=== PATIENT | female | born 1965 | race Caucasian/White ===

== ENCOUNTER 2017-01-25 23:49 | Emergency (ER) | payer OTHER | END 2017-01-26 01:00 | disposition left against medical advice (07) | LOC: ER 23:49 | DX: Z53.21 Procedure and treatment not carried out due to patient leaving prior to being seen by health care provider (principal) ==

== ENCOUNTER 2017-10-25 09:35 | Emergency (ER) | payer SELFPAY ==
--- NOTE | 2017-10-25 10:06 | ER Document Report ---
ED Medical Screen (RME) - General Chief Complaint: Chest Pain > 30 Stated Complaint: CHEST/BACK PAIN Time Seen by Provider: 10/25/17 09:56 Notes: 52-year-old female patient with 4 day history of sternal and epigastric pain radiating into the back getting progressively worse. Brief exam found sternal tenderness, epigastric tenderness, and severe right upper quadrant abdominal palpation tenderness which was a surprise to the patient. Lungs are clear. I have greeted and performed a rapid initial assessment of this patient. A comprehensive ED assessment and evaluation of the patient, analysis of test results and completion of the medical decision making process will be conducted by additional ED providers. TRAVEL OUTSIDE OF THE [place] IN LAST 30 DAYS: No - Related Data Allergies/Adverse Reactions: codeine [Codeine] Allergy (Verified 10/25/17 09:38) Sulfa (Sulfonamide Antibiotics) Allergy (Verified 10/25/17 09:38) tetracycline [Tetracycline] Allergy (Verified 10/25/17 09:38) Past Medical History - Past Medical History Cardiac Medical History: Reports: Hx Hypertension Renal/ Medical History: Reports: Hx Kidney Stones Psychiatric Medical History: Reports: Hx Attention Deficit Hyperactivity Disorder Past Surgical History: Reports: Hx Appendectomy, Hx Kidney (Renal Surgery) - Immunizations Immunizations up to date: Yes Hx Diphtheria, Pertussis, Tetanus Vaccination: Yes Physical Exam - Vital signs Vitals: Temp Pulse Resp BP Pulse Ox 98.1 F 114 H 18 169/93 H 97 10/25/17 09:39 10/25/17 09:39 10/25/17 09:39 10/25/17 09:39 10/25/17 09:39 Course - Vital Signs Vital signs: Temp Pulse Resp BP Pulse Ox 98.1 F 114 H 18 169/93 H 97 10/25/17 09:39 10/25/17 09:39 10/25/17 09:39 10/25/17 09:39 10/25/17 09:39
--- NOTE | 2017-10-25 10:43 | EKG REPORT ---
SEVERITY:- ABNORMAL ECG - SINUS TACHYCARDIA PROBABLE LEFT ATRIAL ABNORMALITY CONSIDER ANTEROSEPTAL INFARCT BORDERLINE T WAVE ABNORMALITIES : Confirmed by: Nic Mojica 25-Oct-2017 10:42:46
[2017-10-25 10:54] LABS: ABSOLUTE BASOPHILS # (AUTO) 0.1 10^3/uL (0.0-0.2); ABSOLUTE EOSINOPHILS # (AUTO) 0.1 10^3/uL (0.0-0.6); ABSOLUTE LYMPHOCYTES (AUTO) 2.4 10^3/uL (0.5-4.7); ABSOLUTE MONOCYTES (AUTO) 0.4 10^3/uL (0.1-1.4); ABSOLUTE NEUT (AUTO) 4.4 10^3/uL (1.7-8.2); BASOPHILS % (AUTO) 0.8 % (0-2); EOSINOPHILS % (AUTO) 1.5 % (0-6); HEMATOCRIT 38.7 % (36.0-47.0); HEMOGLOBIN 13.2 g/dL (12.0-15.5); LYMPHOCYTES % (AUTO) 32.5 % (13-45); MEAN CORPUSCULAR HEMOGLOBIN 29.4 pg (27.0-33.4); MEAN CORPUSCULAR VOLUME 86 fl (80-97); MONOCYTES % (AUTO) 5.8 % (3-13); PLATELET COUNT 350 10^3/uL (150-450); RED BLOOD COUNT 4.48 10^6/uL (3.72-5.28); RED CELL DISTRIBUTION WIDTH 16.5 % (11.5-14.0); SEGMENTED NEUTROPHILS % (AUTO) 59.4 % (42-78); TOTAL CELLS COUNTED % (AUTO) 100 %; WHITE BLOOD COUNT 7.5 10^3/uL (4.0-10.5)
--- NOTE | 2017-10-25 10:56 | RADIOLOGY REPORT (SQ) ---
EXAM DESCRIPTION: ACUTE ABDOMEN SERIES COMPLETED DATE/TIME: 10/25/2017 10:41 am REASON FOR STUDY: Chest pain, abdominal pain COMPARISON: CT stone survey 05/02/2015 KUB 05/02/2015 NUMBER OF VIEWS: Three views. TECHNIQUE: Frontal chest, supine abdomen and upright abdomen radiographic images acquired. LIMITATIONS: None. FINDINGS: CHEST: Lungs clear of infiltrates. Cardiac silhouette size, verito, bony structures unremar kable. FREE AIR: None. No abnormal gas collections. BOWEL GAS PATTERN: Nonobstructive pattern. No dilated loops or air fluid levels. CALCIFICATIONS: There are multiple bilateral intrarenal nonobstructive kidney stones, 5 mm or less in size. These are partially obscured by stool in the transverse colon. No definite stones over the expected course of the right or left ureter. There are calcified pelvic phleboliths present. HARDWARE: None in the abdomen. SOFT TISSUES: No gross mass or suggestion of organomegaly. BONES: Degenerative disc changes at L4-5 and L5-S1 OTHER: No other significant finding. IMPRESSION: Bilateral intrarenal nonobstructive kidney stones. TECHNICAL DOCUMENTATION: JOB ID: [id number] [employer]- All Rights Reserved Reading location - IP/workstation name: [email or web address]
[2017-10-25 11:11] LABS: ALANINE AMINOTRANSFERASE 37 U/L (9-52); ALBUMIN 4.7 g/dL (3.5-5.0); ALKALINE PHOSPHATASE 81 U/L (38-126); ANION GAP 14 (5-19); ASPARTATE AMINO TRANSFERASE 24 U/L (14-36); BILIRUBIN,DIRECT 0.2 mg/dL (0.0-0.4); BILIRUBIN,TOTAL 0.3 mg/dL (0.2-1.3); BLOOD UREA NITROGEN 19 mg/dL (7-20); CALCIUM 10.3 mg/dL (8.4-10.2); CARBON DIOXIDE 27 mmol/L (22-30); CHLORIDE 102 mmol/L (98-107); CREATINE KINASE 239 U/L (30-135); GLUCOSE 129 mg/dL (75-110); LIPASE 246.1 U/L (23-300); POTASSIUM 4.4 mmol/L (3.6-5.0); SODIUM 142.6 mmol/L (137-145); TOTAL PROTEIN 7.6 g/dL (6.3-8.2)
[2017-10-25 11:42] LABS: CREATINE KINASE MB 1.46 ng/mL (<4.55)
[2017-10-25 11:44] LABS: TROPONIN I < 0.012 ng/mL
--- NOTE | 2017-10-25 12:24 | RADIOLOGY REPORT (SQ) ---
EXAM DESCRIPTION: U/S ABDOMEN LIMITED W/O DOP COMPLETED DATE/TIME: 10/25/2017 12:08 pm REASON FOR STUDY: Chest pain, epigastric pain, RUQ pain COMPARISON: Abdominal films 10/25/2017, CT abdomen pelvis 05/02/2015, 02/09/2015 KUB 05/02/2015 TECHNIQUE: Dynamic and static grayscale images acquired of the abdomen and recorded on PACS. Additio nal selected color Doppler and spectral images recorded. LIMITATIONS: Midline bowel gas FINDINGS: PANCREAS: Midline pancreas unremarkable LIVER: Normal size liver difficult to penetrate with the ultrasound energy from diffuse fatty infiltr ation. No gross intrahepatic biliary ductal dilatation. LIVER VASCULATURE: Normal directional flow of the main portal vein and hepatic veins. GALLBLADDER: No stones. Normal wall thickness. No pericholecystic fluid. ULTRASOUND-DETECTED MOYER'S SIGN: Negative. INTRAHEPATIC DUCTS AND COMMON DUCT: CBD and intrahepatic ducts normal caliber. No filling defects. INFERIOR VENA CAVA: Normal flow. AORTA: No aneurysm. RIGHT KIDNEY: 11 cm in length with small intrarenal nonobstructive shadowing stones. No right hydro nephrosis. PERITONEAL AND RIGHT PLEURAL SPACE: No ascites or effusions. OTHER: No other significant findings. IMPRESSION: Fatty liver No gallstones Right-sided intrarenal kidney stones without hydronephrosis TECHNICAL DOCUMENTATION: JOB ID: [id number]- All Rights Reserved Reading location - IP/workstation name: [email or web address]
[2017-10-25] MEDS ORDERED: MAG HYDROX/AL HYDROX/SIMETH SUSP 30 ML UDCUP PO ONE (13:03)
[2017-10-25] MEDS ORDERED: METOCLOPRAMIDE HCL ORAL SOLN 10 MG/10 ML UDCUP PO ONE (13:03)
[2017-10-25] MEDS ORDERED: NORMAL SALINE 250 ML IV ONE (13:03)
[2017-10-25] MEDS ORDERED: LIDOCAINE 2% VISCOUS SOLN 20 ML UDCUP PO ONE (13:03)
--- NOTE | 2017-10-25 14:28 | RADIOLOGY REPORT (SQ) ---
EXAM DESCRIPTION: CTA CHEST COMPLETED DATE/TIME: 10/25/2017 1:55 pm REASON FOR STUDY: tachy cp sob COMPARISON: Three-way abdomen series 10/25/2017 TECHNIQUE: CT scan of the chest performed using helical scanning technique with dynamic intravenous contrast injection. Images reviewed with lung, soft tissue and bone windows. Reconstructed coronal and sagittal MPR images reviewed. Additional 3 dimensional post-processing performed to develop Maximal Intensity Projection images (ND P). All images stored on PACS. All CT scanners at this facility use dose modulation, iterative reconstruction, and/or weight based d osing when appropriate to reduce radiation dose to as low as reasonably achievable (ALARA). [facility]: Dose Right [facility]: CareDose [facility]: Dose Right [facility]: Teradose 4D [facility]: Judys Book CONTRAST TYPE AND DOSE: contrast/concentration: Isovue 370.00 mg/ml; Total Contrast Delivered: 77.0 ml; Total Saline Delivered: 75.0 ml Limited contrast bolus optimized for the pulmonary arteries. Not diagnostic for the aorta. RENAL FUNCTION: Creatinine 0.63 RADIATION DOSE: CT Rad equipment meets quality standard of care and radiation dose reduction techniq ues were employed. CTDIvol: 16.5 - 17.5 mGy. DLP: 614 mGy-cm. . LIMITATIONS: Limited contrast bolus for the pulmonary arteries FINDINGS: LUNGS AND PLEURA: No masses, infiltrates, pneumothorax. No pleural effusions, calcificati ons. AORTA AND GREAT VESSELS: No aneurysm. Contrast bolus not optimized for the aorta. HEART: No pericardial effusion. No significant coronary artery calcifications. PULMONARY ARTERIES: No emboli visualized in the main pulmonary arteries or the segmental branches. HILAR AND MEDIASTINAL STRUCTURES: No identified masses or abnormal nodes. HARDWARE: None in the chest. UPPER ABDOMEN: Left upper pole intrarenal nonobstructive stones. Fatty liver. THYROID AND OTHER SOFT TISSUES: No masses. No adenopathy. BONES: No acute or significant finding. 3D MIPS: Confirm above findings. OTHER: No other significant finding. IMPRESSION: No acute findings COMMENT: Quality ID # [id number]: Final reports with documentation of one or more dose reduction techniques (e.g., Automated exposure control, adjustment of the mA and/or kV according to patient size, use of iterative reconstruction technique) TECHNICAL DOCUMENTATION: JOB ID: [id number] [employer]- All Rights Reserved Reading location - IP/workstation name: [email or web address]
--- NOTE | 2017-10-25 15:01 | ER Document Report ---
ED General - General Chief Complaint: Chest Pain > 30 Stated Complaint: CHEST/BACK PAIN Time Seen by Provider: 10/25/17 09:56 TRAVEL OUTSIDE OF THE [place] IN LAST 30 DAYS: No - HPI Patient complains to provider of: Chest pain back pain abdominal pain shortness of breath Notes: Patient coming in for evaluation of right upper quadrant abdominal pain along with shortness of breath. Patient states ongoing for the last few weeks chest pain started last night. Patient states dyspnea with ambulation. Upon the patient be RME the patient had right upper quadrant tenderness and ultrasound was performed. Patient denies any fevers chills nausea vomiting diarrhea. Patient denies any association of pain with food. Patient is currently upon my evaluation denies any recent trauma denies any recent travel. - Related Data Allergies/Adverse Reactions: codeine [Codeine] Allergy (Verified 10/25/17 09:38) Sulfa (Sulfonamide Antibiotics) Allergy (Verified 10/25/17 09:38) tetracycline [Tetracycline] Allergy (Verified 10/25/17 09:38) Past Medical History - Social History Smoking Status: Current Every Day Smoker Family History: Reviewed & Not Pertinent Patient has suicidal ideation: No Patient has homicidal ideation: No - Past Medical History Cardiac Medical History: Reports: Hx Hypertension Renal/ Medical History: Reports: Hx Kidney Stones. Denies: Hx Peritoneal Dialysis Psychiatric Medical History: Reports: Hx Attention Deficit Hyperactivity Disorder Past Surgical History: Reports: Hx Appendectomy, Hx Kidney (Renal Surgery) - Immunizations Immunizations up to date: Yes Hx Diphtheria, Pertussis, Tetanus Vaccination: Yes Hx Pneumococcal Vaccination: 07/25/00 Review of Systems - Review of Systems Constitutional: No symptoms reported EENT: No symptoms reported Cardiovascular: Chest pain Respiratory: Short of breath Gastrointestinal: No symptoms reported, Abdominal pain Genitourinary: No symptoms reported Female Genitourinary: No symptoms reported Musculoskeletal: No symptoms reported Skin: No symptoms reported Hematologic/Lymphatic: No symptoms reported Neurological/Psychological: No symptoms reported -: Yes All other systems reviewed and negative Physical Exam - Vital signs Vitals: Temp Pulse Resp BP Pulse Ox 98.1 F 114 H 18 169/93 H 97 10/25/17 09:39 10/25/17 09:39 10/25/17 09:39 10/25/17 09:39 10/25/17 09:39 Interpretation: Normal - General General appearance: Appears well, Alert - HEENT Head: Normocephalic, Atraumatic Eyes: Normal Pupils: PERRL - Respiratory Respiratory status: No respiratory distress Chest status: Nontender Breath sounds: Normal Chest palpation: Normal - Cardiovascular Rhythm: Regular Heart sounds: Normal auscultation Murmur: No - Abdominal Inspection: Normal Distension: No distension Bowel sounds: Normal Tenderness: Tender - Right upper quadrant tenderness. No: McBurney's point, Singh's sign, Guarding, Rebound Organomegaly: No organomegaly - Back Back: Normal, Nontender - Extremities General upper extremity: Normal inspection, Nontender, Normal color, Normal ROM , Normal temperature General lower extremity: Normal inspection, Nontender, Normal color, Normal ROM , Normal temperature, Normal weight bearing. No: Sam's sign - Neurological Neuro grossly intact: Yes Cognition: Normal Orientation: AAOx4 [place] Coma Scale Eye Opening: Spontaneous [place] Coma Scale Verbal: Oriented [place] Coma Scale Motor: Obeys Commands [place] Coma Scale Total: 15 Speech: Normal Motor strength normal: LUE, RUE, LLE, RLE Sensory: Normal - Psychological Associated symptoms: Normal affect, Normal mood - Skin Skin Temperature: Warm Skin Moisture: Dry Skin Color: Normal Course - Re-evaluation Re-evalutation: 10/25/17 18:25 Patient coming in for evaluation of right upper quadrant abdominal pain chest pain shortness of breath. Abdominal series was negative. Patient's laboratory findings not suggestive of acute coronary artery ischemia troponins negative. EKG did not show any changes. No signs pancreatitis. Upon reevaluation after the negative right upper quadrant ultrasound patient still complaining of chest pain radiating to her back or shortness of breath. Patient was tachycardic on arrival here therefore a CTA was performed which was also negative. No clear etiology for patient's symptoms and sent underlying GI therefore GI cocktail was given patient states minimal relief The patient has times no critical etiology seen and we can discharge her home. Patient states understanding will discharge home with Nydia Bro and Crista. Upon looking by the patient's room just prior to discharge resting comfortably on her phone texting. - Vital Signs Vital signs: Temp Pulse Resp BP Pulse Ox 97.9 F 84 20 139/82 H 97 10/25/17 15:27 10/25/17 15:27 10/25/17 15:27 10/25/17 15:27 10/25/17 15:27 - Laboratory Result Diagrams: 10/25/17 10:22 10/25/17 10:22 Laboratory results interpreted by me: 10/25/17 10/25/17 10:22 10:22 RDW 16.5 H Glucose 129 H Calcium 10.3 H Creatine Kinase 239 H Discharge - Discharge Clinical Impression: RUQ abdominal pain Chest pain Qualifiers: Chest pain type: unspecified Qualified Code(s): R07.9 - Chest pain, unspecified Dyspnea Qualifiers: Dyspnea type: unspecified Qualified Code(s): R06.00 - Dyspnea, unspecified Condition: Good Disposition: HOME, SELF-CARE Instructions: Abdominal Pain ([facility]), Chest Pain of Unclear Cause ([facility]), Dyspnea , Nonspecific ([facility]) Additional Instructions: Your workup today does not show any signs of cardiac ischemia cardiac damage acute gallbladder disease gallbladder infection gallstones pancreatitis pneumonia within your lungs. I do believe your symptoms are more stomach related is that your pain did improve with the initiation of a GI cocktail. I highly recommend she follow-up with your primary care physician. I do believe he needs further workup for possible gallbladder disease as she did have right upper quadrant abdominal pain. I do believe he also need further workup more likely by manager grant to make sure he does have underlying gastritis. Return to ER symptoms worsen take medications as prescribed. Prescriptions: Dicyclomine HCl [Bentyl 20 mg Tablet] 20 mg PO QID #40 tablet Metoclopramide HCl [Reglan] 5 mg PO Q6 #30 tablet Sucralfate [Carafate 1 gm Tablet] 1 gm PO ACHS #120 tablet Forms: Return to Work
[2017-10-25 15:28] VITALS: BP 139/82
== END 2017-10-25 15:33 | disposition home or self-care (01) ==
LOC: ER 09:35
DX: R10.11 Right upper quadrant pain (principal); R07.9 Chest pain, unspecified; R06.00 Dyspnea, unspecified; M54.9 Dorsalgia, unspecified; F17.200 Nicotine dependence, unspecified, uncomplicated
CPT/HCPCS: 93005; 99285; 36415; 82553; 82550; 83690; 85025; 80053; 84484; 74022; 76705; 71275; 93010; J3490; J7050

== ENCOUNTER 2017-12-27 11:35 | Observation (INO) | payer SELFPAY ==
[2017-12-27] MEDS ORDERED: ASPIRIN 81 MG TABLET, CHEWABLE PO ONE (11:44)
--- NOTE | 2017-12-27 11:46 | ER Document Report ---
ED Medical Screen (RME) - General Chief Complaint: Abnormal Lab Results Stated Complaint: ABNORMAL LABS Time Seen by Provider: 12/27/17 11:44 Notes: RAPID MEDICAL EVALUATION DISCLOSURE I have seen this patient as part of a Rapid Medical Evaluation and, if applicable, placed any initially appropriate orders. The patient will be seen and fully evaluated, including a full history and physical exam, by a provider ( in Main ED or Fast Track) when a room becomes available. 52-year-old female here with complaints of midsternal chest pain shortness of breath diaphoresis nausea ongoing for the past 6 weeks but worsening progressively and especially over the weekend so she called her doctor who ordered blood tests which showed an elevated troponin. She was therefore sent here for further evaluation. EXAM CTAB RRR TRAVEL OUTSIDE OF THE [place] IN LAST 30 DAYS: No - Related Data Allergies/Adverse Reactions: codeine [Codeine] Allergy (Verified 10/25/17 09:38) Sulfa (Sulfonamide Antibiotics) Allergy (Verified 10/25/17 09:38) tetracycline [Tetracycline] Allergy (Verified 10/25/17 09:38) Past Medical History - Past Medical History Cardiac Medical History: Reports: Hx Hypertension Renal/ Medical History: Reports: Hx Kidney Stones. Denies: Hx Peritoneal Dialysis Psychiatric Medical History: Reports: Hx Attention Deficit Hyperactivity Disorder Past Surgical History: Reports: Hx Appendectomy, Hx Kidney (Renal Surgery) - Immunizations Immunizations up to date: Yes Hx Diphtheria, Pertussis, Tetanus Vaccination: Yes
[2017-12-27 12:17] LABS: ABSOLUTE BASOPHILS # (AUTO) 0.1 10^3/uL (0.0-0.2); ABSOLUTE EOSINOPHILS # (AUTO) 0.1 10^3/uL (0.0-0.6); ABSOLUTE LYMPHOCYTES (AUTO) 2.8 10^3/uL (0.5-4.7); ABSOLUTE MONOCYTES (AUTO) 0.4 10^3/uL (0.1-1.4); ABSOLUTE NEUT (AUTO) 4.1 10^3/uL (1.7-8.2); BASOPHILS % (AUTO) 0.8 % (0-2); HEMATOCRIT 40.9 % (36.0-47.0); HEMOGLOBIN 13.9 g/dL (12.0-15.5); LYMPHOCYTES % (AUTO) 37.6 % (13-45); MEAN CORPUSCULAR HEMOGLOBIN 29.7 pg (27.0-33.4); MEAN CORPUSCULAR HGB CONC 33.9 g/dL (32.0-36.0); MEAN CORPUSCULAR VOLUME 88 fl (80-97); MONOCYTES % (AUTO) 5.7 % (3-13); PLATELET COUNT 349 10^3/uL (150-450); RED BLOOD COUNT 4.67 10^6/uL (3.72-5.28); RED CELL DISTRIBUTION WIDTH 15.6 % (11.5-14.0); SEGMENTED NEUTROPHILS % (AUTO) 54.9 % (42-78); TOTAL CELLS COUNTED % (AUTO) 100 %; WHITE BLOOD COUNT 7.6 10^3/uL (4.0-10.5)
[2017-12-27 12:34] LABS: ANION GAP 15 (5-19); BLOOD UREA NITROGEN 17 mg/dL (7-20); CALCIUM 10.6 mg/dL (8.4-10.2); CARBON DIOXIDE 29 mmol/L (22-30); CHLORIDE 100 mmol/L (98-107); GLUCOSE 99 mg/dL (75-110); POTASSIUM 4.2 mmol/L (3.6-5.0); SODIUM 143.8 mmol/L (137-145)
--- NOTE | 2017-12-27 12:36 | RADIOLOGY REPORT (SQ) ---
EXAM DESCRIPTION: CHEST 2 VIEWS COMPLETED DATE/TIME: 12/27/2017 12:27 pm REASON FOR STUDY: CP COMPARISON: None. EXAM PARAMETERS: NUMBER OF VIEWS: two views TECHNIQUE: Digital Frontal and Lateral radiographic views of the chest acquired. RADIATION DOSE: NA LIMITATIONS: none FINDINGS: LUNGS AND PLEURA: No opacities, masses or pneumothorax. No pleural effusion. MEDIASTINUM AND HILAR STRUCTURES: No masses or contour abnormalities. HEART AND VASCULAR STRUCTURES: Heart normal size. No evidence for failure. BONES: No acute findings. HARDWARE: None in the chest. OTHER: No other significant finding. IMPRESSION: NO ACUTE RADIOGRAPHIC FINDING IN THE CHEST. TECHNICAL DOCUMENTATION: JOB ID: [id number] [employer]- All Rights Reserved Reading location - IP/workstation name: [email or web address]
[2017-12-27 14:17] LABS: ALANINE AMINOTRANSFERASE 38 U/L (9-52); ALBUMIN 4.7 g/dL (3.5-5.0); ALKALINE PHOSPHATASE 79 U/L (38-126); ASPARTATE AMINO TRANSFERASE 31 U/L (14-36); BILIRUBIN,DIRECT 0.3 mg/dL (0.0-0.4); BILIRUBIN,TOTAL 0.3 mg/dL (0.2-1.3); TOTAL PROTEIN 8.1 g/dL (6.3-8.2)
--- NOTE | 2017-12-27 16:31 | ER Document Report ---
ED General - General Chief Complaint: Abnormal Lab Results Stated Complaint: ABNORMAL LABS Time Seen by Provider: 12/27/17 11:44 TRAVEL OUTSIDE OF THE [place] IN LAST 30 DAYS: No - HPI Patient complains to provider of: Abnormal labs Notes: Patient coming in for evaluation abnormal labs. Patient states history of chest pain sharp shooting intermittent episodes ongoing for the greater than the last 24 hours. Patient states she saw her physician yesterday for the symptoms laboratory studies were performed she was called this morning stating that her troponin was elevated to come to the ER for further evaluation. Upon my evaluation patient states that her symptoms have resolved however she does state she does get chest pain syndrome chest rating up to her neck also has had increased shortness of breath dyspnea on exertion over the last week. Denies any recent travel denies any changes to her medications. Patient does have a history of hyper tension hyperlipidemia and is currently on amlodipine lisinopril hydrochlorothiazide Lipitor patient also states she takes as needed Klonopin. Patient otherwise resting comfortably upon my evaluation chest pain- free. Patient states she did have a cardiac catheterization while she was in her 30s with no intervention performed. Has not had any dynamic testing since that time. Does have a positive family history for father having possible IA in his 50s - Related Data Allergies/Adverse Reactions: codeine [Codeine] Allergy (Verified 12/27/17 11:46) doxycycline Allergy (Verified 12/27/17 11:46) Sulfa (Sulfonamide Antibiotics) Allergy (Verified 12/27/17 11:46) tetracycline [Tetracycline] Allergy (Verified 12/27/17 11:46) Past Medical History - Social History Smoking Status: Current Every Day Smoker Chew tobacco use (# tins/day): No Frequency of alcohol use: None Drug Abuse: None Family History: Reviewed & Not Pertinent Patient has suicidal ideation: No Patient has homicidal ideation: No - Past Medical History Cardiac Medical History: Reports: Hx Hypercholesterolemia, Hx Hypertension Renal/ Medical History: Reports: Hx Kidney Stones. Denies: Hx Peritoneal Dialysis Psychiatric Medical History: Reports: Hx Attention Deficit Hyperactivity Disorder Past Surgical History: Reports: Hx Abdominal Surgery - laproscopy, Hx Appendectomy, Hx Section, Hx Kidney (Renal Surgery), Hx Orthopedic Surgery - carpel tunnel - Immunizations Immunizations up to date: Yes Hx Diphtheria, Pertussis, Tetanus Vaccination: Yes Hx Pneumococcal Vaccination: 07/25/00 Review of Systems - Review of Systems Constitutional: No symptoms reported EENT: No symptoms reported Cardiovascular: Chest pain Respiratory: No symptoms reported Gastrointestinal: No symptoms reported Genitourinary: No symptoms reported Female Genitourinary: No symptoms reported Musculoskeletal: No symptoms reported Skin: No symptoms reported Hematologic/Lymphatic: No symptoms reported Neurological/Psychological: No symptoms reported Physical Exam - Vital signs Vitals: Resp Pulse Ox 16 99 12/27/17 13:48 12/27/17 13:48 Interpretation: Normal - General General appearance: Appears well, Alert - HEENT Head: Normocephalic, Atraumatic Eyes: Normal Pupils: PERRL - Respiratory Respiratory status: No respiratory distress Chest status: Nontender Breath sounds: Normal Chest palpation: Normal - Cardiovascular Rhythm: Regular Heart sounds: Normal auscultation Murmur: No - Abdominal Inspection: Normal Distension: No distension Bowel sounds: Normal Tenderness: Tender - Epigastric tenderness mild Organomegaly: No organomegaly - Back Back: Normal, Nontender - Extremities General upper extremity: Normal inspection, Nontender, Normal color, Normal ROM , Normal temperature General lower extremity: Normal inspection, Nontender, Normal color, Normal ROM , Normal temperature, Normal weight bearing. No: Sam's sign - Neurological Neuro grossly intact: Yes Cognition: Normal Orientation: AAOx4 [place] Coma Scale Eye Opening: Spontaneous [place] Coma Scale Verbal: Oriented [place] Coma Scale Motor: Obeys Commands Edu Coma Scale Total: 15 Speech: Normal Motor strength normal: LUE, RUE, LLE, RLE Sensory: Normal - Psychological Associated symptoms: Normal affect, Normal mood - Skin Skin Temperature: Warm Skin Moisture: Dry Skin Color: Normal Course - Re-evaluation Re-evalutation: 12/27/17 16:30 Patient coming in for evaluation chest pain. EKG does not show any acute changes. Was able to contact her physician stating that her troponin was 0.11. Patient's troponin here is 0.032. Patient again is chest pain-free with the patient's past medical history and family history difficult patient will warrant admission to hospital for observation and dynamic testing stress test is discussed with the hospitalist agrees this plan patient will be admitted for further evaluation - Vital Signs Vital signs: Temp Pulse Resp BP Pulse Ox 20 123/76 99 12/27/17 15:02 12/27/17 15:02 12/27/17 15:02 - Laboratory Result Diagrams: 12/27/17 11:57 12/27/17 11:57 Laboratory results interpreted by me: 12/27/17 12/27/17 11:57 11:57 RDW 15.6 H Calcium 10.6 H Discharge - Discharge Clinical Impression: Chest pain, rule out acute myocardial infarction Condition: Good Disposition: ADMITTED OBSERVATION Admitting Provider: Hospitalist - [facility] [facility] Admitted: Telemetry Referrals: ELOISE CROSS MD [Primary Care Provider] - Follow up as needed
[2017-12-27] MEDS ORDERED: ACETAMINOPHEN 325 MG TABLET PO PRN (16:37)
[2017-12-27] MEDS ORDERED: ONDANSETRON 4 MG TAB.RAPDIS PO PRN (16:37)
[2017-12-27] MEDS ORDERED: BENZONATATE 100 MG CAPSULE PO PRN (16:42)
[2017-12-27 17:29] LABS: CREATINE KINASE MB 0.78 ng/mL (<4.55); TROPONIN I 0.028 ng/mL
[2017-12-27 18:48] LABS: APPEARANCE,URINE CLEAR; BILIRUBIN,URINE NEGATIVE (NEGATIVE); COLOR,URINE YELLOW; GLUCOSE, URINE NEGATIVE (NEGATIVE); KETONES,URINE NEGATIVE (NEGATIVE); LEUKOCYTE ESTERASE,URINE NEGATIVE (NEGATIVE); NITRITE,URINE NEGATIVE (NEGATIVE); PROTEIN,URINE NEGATIVE (NEGATIVE); URINE SPECIFIC GRAVITY 1.016; UROBILINOGEN,URINE NEGATIVE mg/dL (<2.0)
--- NOTE | 2017-12-27 20:04 | PDOC H&P ---
History of Present Illness Admission Date/PCP: 12/27/17 16:48 ELOISE CROSS MD Patient complains of: Chest pain History of Present Illness: LULY SARMIENTO is a 52 year old female who was sent to the hospital by her primary care physician. The patient has a history of hypertension and hyperlipidemia. She has had increasing issues with chest discomfort over the past 6 weeks which is been worsening. She had an episode last that was so severe that she went and saw her primary care provider on Tuesday. He cecilia blood in the office. Apparently 1 of the test he ordered was a troponin which was reportedly elevated at 0.1. He called her and asked her to present to the hospital for further evaluation. At the time of admission the patient states that her chest pain is in the center of her chest. It radiates up into the neck and jaw. She states that the episode over the weekend felt as if she was shot in the chest with small hole in the front of the chest and then a large hole in her back. She states that she had severe back pain. She states the pain also radiates into her shoulder. She also complains of epigastric pain and right upper quadrant pain. She states that this gets quite severe at times as well. In regards to her chest pain she states that it is much worse with exertion. She states this past weekend she broke out into a sweat and became quite nauseated. It does relieve with rest when she sits down but if she lays flat the pain comes back. She also states that she has had a history of recurrent kidney stones. She states that she has been having increasing flank pain bilaterally. Also some left lower quadrant abdominal pain. Overall she just does not feel well. Past Medical History Cardiac Medical History: Reports: Hyperlipidema, Hypertension Pulmonary Medical History: Reports: None Denies: Chronic Obstructive Pulmonary Disease (COPD), Respiratory Failure EENT Medical History: Reports: None Neurological Medical History: Reports: None Endocrine Medical History: Reports: None Renal/ Medical History: Reports: Nephrolithiasis, Other - She has recurrent kidney stones. She has had obstructing stones requiring Malignancy Medical History: Reports: None GI Medical History: Reports: Gastroesophageal Reflux Disease Musculoskeltal Medical History: Reports: None Skin Medical History: Reports: None Psychiatric Medical History: Reports: Attention Deficit Hyperactivity Disorder Traumatic Medical History: Reports: None Hematology: Reports: None Infectious Medical History: Reports: None Past Surgical History Past Surgical History: Reports: Appendectomy, Section, Orthopedic Surgery - carpel tunnel Social History Information Source: Patient Lives with: Spouse/Significant other Smoking Status: Current Every Day Smoker Frequency of Alcohol Use: Rare Hx Recreational Drug Use: No Hx Prescription Drug Abuse: No - Advance Directive Resuscitation Status: Full Code Family History Family History: CAD Parental Family History Reviewed: Yes Children Family History Reviewed: Yes Sibling(s) Family History Reviewed.: Yes Medication/Allergy Home Medications: Amlodipine Besylate [Norvasc 5 mg Tablet] 5 mg PO DAILY 12/27/17 Benzonatate [Tessalon Perles 100 mg Capsule] 100 mg PO Q8HP PRN 12/27/17 Lisinopril/Hydrochlorothiazide [Lisinopril-Hctz 20-25 mg Tab] 1 tab PO DAILY 12/09 Lovastatin [Altoprev] 20 mg PO DAILY 12/27/17 Methylphenidate HCl [Ritalin] 10 mg PO DAILY 12/27/17 Methylphenidate HCl [Ritalin] 20 mg PO Q12 12/27/17 Metoclopramide HCl [Reglan] 5 mg PO Q6HP PRN 12/27/17 Omeprazole 20 mg PO Q12 12/27/17 Allergies/Adverse Reactions: codeine [Codeine] Allergy (Verified 12/27/17 11:46) doxycycline Allergy (Verified 12/27/17 11:46) Sulfa (Sulfonamide Antibiotics) Allergy (Verified 12/27/17 11:46) tetracycline [Tetracycline] Allergy (Verified 12/27/17 11:46) Review of Systems Constitutional: PRESENT: fatigue. ABSENT: headache(s), night sweats, weakness Eyes: ABSENT: visual disturbances Ears: ABSENT: hearing changes Nose, Mouth, and Throat: ABSENT: headache(s), mouth pain, sore throat Cardiovascular: PRESENT: chest pain, dyspnea on exertion, edema. ABSENT: palpitations Respiratory: ABSENT: cough, dyspnea, hemoptysis Gastrointestinal: PRESENT: abdominal pain, heartburn, nausea. ABSENT: constipation, diarrhea, dysphagia, hematemesis, hematochezia, melena, vomiting Genitourinary: PRESENT: other - Flank pain. ABSENT: difficulty urinating Integumentary: ABSENT: rash, wounds Neurological: ABSENT: abnormal gait, abnormal speech, confusion, dizziness, focal weakness, syncope Psychiatric: ABSENT: anxiety, depression, homidical ideation, suicidal ideation Endocrine: ABSENT: cold intolerance, heat intolerance, polydipsia, polyuria Hematologic/Lymphatic: ABSENT: easy bleeding, easy bruising Physical Exam Vital Signs: Temp Pulse Resp BP Pulse Ox 98 F 67 17 114/81 99 12/27/17 18:52 12/27/17 18:52 12/27/17 18:52 12/27/17 18:52 12/27/17 18:52 Intake & Output 12/26/17 12/27/17 12/28/17 06:59 06:59 06:59 Weight 93 kg General appearance: PRESENT: no acute distress, morbidly obese, well-developed, well-nourished Head exam: PRESENT: atraumatic, normocephalic Ear exam: PRESENT: normal external ear exam Mouth exam: PRESENT: moist, tongue midline Neck exam: ABSENT: carotid bruit, JVD, lymphadenopathy, thyromegaly Respiratory exam: PRESENT: clear to auscultation sam. ABSENT: rales, rhonchi, wheezes Cardiovascular exam: PRESENT: RRR. ABSENT: diastolic murmur, rubs, systolic murmur GI/Abdominal exam: PRESENT: guarding, normal bowel sounds, soft, tenderness Rectal exam: PRESENT: deferred Extremities exam: PRESENT: full ROM, other - Mild pitting edema. ABSENT: calf tenderness, clubbing, pedal edema Musculoskeletal exam: PRESENT: ambulatory Neurological exam: PRESENT: alert, awake, oriented to person, oriented to place , oriented to time, oriented to situation, CN II-XII grossly intact. ABSENT: motor sensory deficit Psychiatric exam: PRESENT: appropriate affect, normal mood. ABSENT: homicidal ideation, suicidal ideation Skin exam: PRESENT: dry, intact, warm. ABSENT: cyanosis, rash Results Impressions: Chest X-Ray 12/27/17 11:44 IMPRESSION: NO ACUTE RADIOGRAPHIC FINDING IN THE CHEST. Assessment & Plan - Diagnosis (1) Chest pain Is this a current diagnosis for this admission?: Yes Plan: Her chest pain is a bit atypical but concerning. She does have a family history of family members having MIs in their 50s. She will be admitted to the hospital. We will trend her serial troponins. We will obtain a 2D cardiac echo as well as a Cardiolite stress test in the morning. Her chest discomfort could be GI in nature as she does seem to have a lot of GI issues. (2) Kidney stones Is this a current diagnosis for this admission?: Yes Plan: She has had issues with recurrent kidney stones. I am going to obtain a UA and urine culture. She is going to get a CT scan of the abdomen and pelvis for further evaluation. (3) Abdominal pain Is this a current diagnosis for this admission?: Yes Plan: Patient with significant abdominal pain. She is quite tender in the left lower quadrant. Also with right upper quadrant pain he could be concerning that she has gallstones or even a peptic ulcer. Her chest discomfort could be caused by esophageal spasm. She has never had a GI workup. I am getting a CT scan of the abdomen and pelvis for further evaluation we will follow-up with those results (4) Hypertension Is this a current diagnosis for this admission?: Yes Plan: Stable. Continue home regimen (5) ADHD Is this a current diagnosis for this admission?: Yes Plan: Stable (6) Morbid obesity Is this a current diagnosis for this admission?: Yes Plan: Dietary discretion is advised (7) Full code status Is this a current diagnosis for this admission?: Yes - Time Time Spent: 50 to 70 Minutes - Inpatient Certification Medical Necessity: Other - The patient will be placed in observation in the hospital. I expect her to spend less than 2 midnights in the hospital. If we find anything on all of the tests that we run her status can be changed tomorrow.
--- NOTE | 2017-12-27 20:11 | RADIOLOGY REPORT (SQ) ---
EXAM DESCRIPTION: CT ABD/PELVIS WITH IV ORAL COMPLETED DATE/TIME: 12/27/2017 8:00 pm REASON FOR STUDY: abdomnial pain, h/o kidney stones, RUQ pain, LLQ p COMPARISON: 03/09/2012 TECHNIQUE: CT scan of the abdomen and pelvis performed using helical scanning technique with dynamic intravenous contrast injection. No oral contrast. Images reviewed with lung, soft tissue, and bone windows. Reconstructed coronal and sagittal MPR images reviewed. Delayed images for evaluation of the urinary system also acquired. All images stored on PACS. All CT scanners at this facility use dose modulation, iterative reconstruction, and/or weight based d osing when appropriate to reduce radiation dose to as low as reasonably achievable (ALARA). [facility]: Dose Right [facility]: CareDose [facility]: Dose Right [facility]: Teradose 4D [facility]: TapFit CONTRAST TYPE AND DOSE: contrast/concentration: Isovue 370.00 mg/ml; Total Contrast Delivered: 99.0 ml; Total Saline Delivered: 72.0 ml RENAL FUNCTION: GFR > 60. RADIATION DOSE: CT Rad equipment meets quality standard of care and radiation dose reduction techniq ues were employed. CTDIvol: 18.7 - 20.6 mGy. DLP: 2124 mGy-cm.. LIMITATIONS: None. FINDINGS: LOWER CHEST: No significant findings. No nodules or infiltrates. LIVER: Hepatic steatosis. No masses. No dilated ducts. SPLEEN: Normal size. No focal lesions. PANCREAS: No masses. No significant calcifications. No adjacent inflammation or peripancreatic fluid collections. Pancreatic duct not dilated. GALLBLADDER: No identified stones by CT criteria. No inflammatory changes to suggest cholecystitis. ADRENAL GLANDS: Stable right adrenal nodule. No new or enlarging masses. RIGHT KIDNEY AND URETER: Stable cysts. No solid masses. Stable nonobstructing calculi. No hydro nephrosis or hydroureter. LEFT KIDNEY AND URETER: Stable cysts. No solid masses. Stable nonobstructing calculi. No hydrone phrosis or hydroureter. AORTA AND VESSELS: No aneurysm. No dissection. Renal arteries, SMA, celiac without stenosis. RETROPERITONEUM: No retroperitoneal adenopathy, hemorrhage or masses. BOWEL AND PERITONEAL CAVITY: No masses or inflammatory changes. No free fluid or peritoneal masses. APPENDIX: Normal. PELVIS: No mass. No free fluid. Normal bladder. ABDOMINAL WALL: No masses. No hernias. BONES: Degenerative change without fracture or suspicious osseous lesion. OTHER: No other significant finding. IMPRESSION: NO ACUTE FINDINGS WITHIN THE ABDOMEN OR PELVIS. HEPATIC STEATOSIS. NONOBSTRUCTING BILATERAL RENAL CALCULI. OVERALL NO SIGNIFICANT CHANGE FROM PRIOR STUDY PEER TECHNICAL DOCUMENTATION: JOB ID: [id number] Quality ID # [id number]: Final reports with documentation of one or more dose reduction techniques (e.g., Au tomated exposure control, adjustment of the mA and/or kV according to patient size, use of iterative reconstruction technique) 2010 [employer]- All Rights Reserved Reading location - IP/workstation name: [email or web address]
[2017-12-27] MEDS: LANSOPRAZOLE 30 MG TAB.RAP.DR PO SCH (20:17)
[2017-12-27] MEDS: ATORVASTATIN CALCIUM 10 MG TABLET PO SCH (21:52)
--- NOTE | 2017-12-27 22:10 | EKG REPORT ---
SEVERITY:- NORMAL ECG - SINUS RHYTHM : Confirmed by: Glenna Valentino MD 27-Dec-2017 22:09:59
[2017-12-27 23:23] LABS: TROPONIN I 0.026 ng/mL
[2017-12-28 05:44] LABS: ANION GAP 10 (5-19); BLOOD UREA NITROGEN 18 mg/dL (7-20); CALCIUM 9.9 mg/dL (8.4-10.2); CARBON DIOXIDE 29 mmol/L (22-30); CHLORIDE 102 mmol/L (98-107); CHOLESTEROL 248.48 mg/dL (0-200); CREATINE KINASE 135 U/L (30-135); GLUCOSE 107 mg/dL (75-110); PHOSPHORUS 5.4 mg/dL (2.5-4.5); POTASSIUM 4.2 mmol/L (3.6-5.0); SODIUM 140.6 mmol/L (137-145); TRIGLYCERIDES 201 mg/dL (<150)
[2017-12-28 05:50] LABS: CREATINE KINASE MB 0.92 ng/mL (<4.55); TROPONIN I 0.026 ng/mL
[2017-12-28 05:54] LABS: DIRECT LDL 181 mg/dL (<100)
[2017-12-28 05:55] LABS: VLDL CHOLESTEROL 40.2 mg/dL (10-31)
[2017-12-28] MEDS: LANSOPRAZOLE 30 MG TAB.RAP.DR PO SCH ×2 (06:42→16:21)
--- NOTE | 2017-12-28 08:14 | EKG REPORT ---
SEVERITY:- NORMAL ECG - SINUS RHYTHM : Confirmed by: Glenna Valentino MD 28-Dec-2017 08:14:08
[2017-12-28] MEDS ORDERED: AMLODIPINE BESYLATE 5 MG TABLET PO SCH (10:00)
[2017-12-28] MEDS ORDERED: (PENDING PHARMACY ID) (Lisinopril/Hydrochlorothiazide [Lisinopril-Hctz 20-25 Mg Tab] 1 TAB PO SCH (10:00)
[2017-12-28] MEDS ORDERED: (PENDING PHARMACY ID) (Lovastatin [Altoprev] 20 MG) PO SCH (10:00)
[2017-12-28] MEDS: ENOXAPARIN SODIUM INJ 40 MG/0.4 ML DISP.SYRIN SUBCUT SCH (10:37)
[2017-12-28] MEDS: HYDROCHLOROTHIAZIDE 25 MG TABLET PO SCH (10:38)
[2017-12-28] MEDS: LISINOPRIL 10 MG TABLET PO SCH (10:38)
--- NOTE | 2017-12-28 13:09 | DRAGON STRESS TEST REPORT ---
INTRAVENOUS LEXISCAN CARDIOLITE STRESS TEST USING SINGLE PHOTON EMMISION COMPUTERIZED TOMOGRAPHIC. DATE OF PROCEDURE: December 28, 2017, INDICATION : Chest pain CARDIAC RISK FACTORS: Hypertension, dyslipidemia RESTING EKG: Sinus rhythm with minor nonspecific ST-T changes STRESS EKG: No significant ST segment changes noted with LexiScan bolus REASON FOR TERMINATION: Protocol. PROCEDURE REPORT: Baseline heart rate 67 beats per minute with blood pressure of 112/58. Patient had no significant complaints. Patient was bolused with Lexiscan 0.4 mg intravenously followed by saline bolus. Heart rate at 2 minutes post bolus 103 with a blood pressure of 129/72. 3 minutes post bolus heart rate 97 with blood pressure of 134/64. No significant EKG changes were noted. Patient did complain of chest pain during the procedure but there were no corresponding EKG changes and chest pain felt atypical by description and examination. CONCLUSIONS: Normal EKG and hemodynamic response to IV LexiScan. NUCLEAR DATA: At rest the patient was given 13.48 millicuries of technetium 99 sestamibi injected intravenously. As per protocol rest gated SPECT images were obtained. On day of stress test, the patient was given intravenous LexiScan at a dose of 0.4 mg in 5 mL intravenously, followed by flush with normal saline. Subsequently the stress dose of 41.4 millicuries of technetium 99 sestamibi was injected intravenously. As per protocol stress gated images were obtained. NUCLEAR INTERPRETATION: Both raw and processed data were used for interpretation. Visual, qualitative, computer-generated quantitative data was used. There was good myocardial uptake of technetium compound. Motion artifact and soft tissue attenuations were noted. Increased visceral uptake was noted. Mild decreased uptake was noted in the distal anterior wall in both rest and stress images and felt to be related to breast attenuation artifact. There were no corresponding wall motion abnormalities. No definitive areas of transient perfusion defect noted, No definitive areas of fixed perfusion defect or scars noted. EKG gated imaging showed LV EF at 67 %, rest and stress gated EF similar visually. T. I D. ratio was 1.03. Lung heart ratio noted to be within normal limits 0.24. No significant extracardiac and abnormal radiotracer activities were noted. RV free wall uptake was noted to be WNL. IMPRESSION: Also refer to comments under nuclear interpretation. Also test results needs to be interpreted in the context of pretest probability. 1. No definitive areas of transient perfusion defect noted. 2. There is no definitive scintigraphic evidence of myocardial infarction/scar. 3. EKG gated imaging shows left ventricular ejection fraction of approx. 67 %. 4. Clinical correlation requested as occasionally single vessel disease or balanced ischemia could be missed. In approximately 10% of the cases Lexiscan may not cause adequate vasodilatory stress. RECOMMENDATIONS: Aggressive risk factor modification and medical management. Further evaluation may be needed if continued symptoms or other high risk indicators are noted on clinical evaluation. Close cardiology follow-up is also recommended. Clinical correlation with echocardiogram derived ejection fraction. Inability to exercise by itself can lead to increased cardiovascular event risks. Consider cardiology consultation and or follow-up if clinically indicated. I am available for cardiology evaluation and consultation if requested by the rod drawer, unless patient already has a carver hand. PHANI
[2017-12-28] MEDS ORDERED: REGADENOSON INJ 0.4 MG/5 ML DISP.SYRIN IV ONE (14:28)
[2017-12-28] MEDS ORDERED: LIDOCAINE 2% VISCOUS SOLN 20 ML UDCUP PO ONE (15:00)
[2017-12-28] MEDS ORDERED: METOCLOPRAMIDE HCL ORAL SOLN 10 MG/10 ML UDCUP PO ONE (15:00)
[2017-12-28] MEDS ORDERED: MAG HYDROX/AL HYDROX/SIMETH SUSP 30 ML UDCUP PO ONE (15:00)
[2017-12-28] MEDS ORDERED: PANTOPRAZOLE SODIUM 40 MG VIAL IV ONE (15:00)
--- NOTE | 2017-12-28 17:19 | PDOC PROGRESS REPORT ---
Subjective Progress Note for:: 12/28/17 Subjective:: The patient had a stress test today which was unremarkable. She was also seen by Dr. Mojica. She continues to have chest discomfort that radiates into her back. After quite a bit of conversation it sounds as if this is musculoskeletal in nature and certainly it sounds as if there is a GI component to it. Dr. Mojica feels as if she needs a GI workup and recommended consulting GI here in the hospital. I have spoken to Dr. Lane who is graciously agreed to come into the hospital and perform an endoscopy on the patient in the morning. I have discussed this with the patient and she is agreeable. Overall she states that she is just frustrated due to this ongoing pain. She denies fever chills. She does have chest wall discomfort and discomfort upon movement. She also has rather significant epigastric pain as well. She knows that she has issues with reflux. She has had no nausea or vomiting. No abdominal pain. No urinary complaints. Reason For Visit: CHEST PAIN AND ABDOMINAL PAIN Physical Exam Vital Signs: Temp Pulse Resp BP Pulse Ox 98 F 71 15 116/68 97 12/28/17 08:00 12/28/17 08:00 12/28/17 08:00 12/28/17 08:00 12/28/17 08:00 Intake & Output 12/27/17 12/28/17 12/29/17 06:59 06:59 06:59 Intake Total 670 Output Total 2000 Balance -1330 Weight 93.2 kg General appearance: PRESENT: no acute distress, obese, well-developed, well- nourished Head exam: PRESENT: atraumatic, normocephalic Eye exam: PRESENT: conjunctiva pink, EOMI, PERRLA. ABSENT: scleral icterus Mouth exam: PRESENT: moist, tongue midline Neck exam: ABSENT: carotid bruit, JVD, lymphadenopathy, thyromegaly Respiratory exam: PRESENT: chest wall tenderness, clear to auscultation sam. ABSENT: rales, rhonchi, wheezes Cardiovascular exam: PRESENT: RRR. ABSENT: diastolic murmur, rubs, systolic murmur Pulses: PRESENT: normal dorsalis pedis pul Vascular exam: PRESENT: normal capillary refill GI/Abdominal exam: PRESENT: normal bowel sounds, soft, tenderness - She is quite tender to palpation in the epigastric area and right upper quadrant.. ABSENT: distended, guarding, mass, organolmegaly, rebound Rectal exam: PRESENT: deferred Extremities exam: PRESENT: full ROM. ABSENT: calf tenderness, clubbing, pedal edema Musculoskeletal exam: PRESENT: ambulatory Neurological exam: PRESENT: alert, awake, oriented to person, oriented to place , oriented to time, oriented to situation, CN II-XII grossly intact. ABSENT: motor sensory deficit Psychiatric exam: PRESENT: appropriate affect, normal mood. ABSENT: homicidal ideation, suicidal ideation Skin exam: PRESENT: dry, intact, warm. ABSENT: cyanosis, rash Results Laboratory Results: 12/28/17 04:46 12/28/17 12/28/17 04:46 04:46 Sodium 140.6 Potassium 4.2 Chloride 102 Carbon Dioxide 29 Anion Gap 10 BUN 18 Creatinine 0.77 Est GFR ( Amer) > 60 Est GFR (Non-Af Amer) > 60 Glucose 107 Calcium 9.9 Phosphorus 5.4 H Magnesium 1.9 Triglycerides 201 H Cholesterol 248.48 H LDL Cholesterol Direct 181 H VLDL Cholesterol 40.2 H HDL Cholesterol 38 L TSH 3.73 12/27/17 12/27/17 12/28/17 22:45 22:45 04:46 Creatine Kinase 153 H 135 CK-MB (CK-2) 1.00 Troponin I 0.026 12/28/17 04:46 Creatine Kinase CK-MB (CK-2) 0.92 Troponin I 0.026 Impressions: Abdomen/Pelvis CT 12/27/17 00:00 IMPRESSION: NO ACUTE FINDINGS WITHIN THE ABDOMEN OR PELVIS. HEPATIC STEATOSIS. NONOBSTRUCTING BILATERAL RENAL CALCULI. OVERALL NO SIGNIFICANT CHANGE FROM PRIOR STUDY PEER Chest X-Ray 12/27/17 11:44 IMPRESSION: NO ACUTE RADIOGRAPHIC FINDING IN THE CHEST. Assessment & Plan - Diagnosis (1) Chest pain Is this a current diagnosis for this admission?: Yes Plan: Stress test was negative. We are still waiting to get an echocardiogram. I am going to get a CT angiography of her chest just for completeness sake. I suspect she has a combination of musculoskeletal chest pain as well as a GI cause for her chest pain. She is going to have an upper endoscopy tomorrow. We will make her n.p.o. after midnight. I have started her on 40 mg of IV Protonix twice daily. I also am going to start her on some low-dose Naprosyn. (2) Kidney stones Is this a current diagnosis for this admission?: Yes Plan: She does have some nonobstructing stones noted in her kidneys on her abdominal CT. (3) Abdominal pain Is this a current diagnosis for this admission?: Yes Plan: Dr. Mcgovern will see the patient tomorrow for an upper endoscopy. I certainly appreciate his assistance. (4) Hypertension Is this a current diagnosis for this admission?: Yes Plan: Stable. Continue home regimen (5) ADHD Is this a current diagnosis for this admission?: Yes Plan: Stable (6) Morbid obesity Is this a current diagnosis for this admission?: Yes Plan: Dietary discretion is advised (7) Full code status Is this a current diagnosis for this admission?: Yes - Time Time Spent with patient: 25-34 minutes - Inpatient Certification Medical Necessity: Need Close Monitoring Due to Risk of Patient Decompensation - Inpatient hospitalization remains necessary. The patient is still having a significant amount of pain. Going to get a CTA of the chest and she still needs to get her 2D echocardiogram performed. Dr. Ramsey will see her tomorrow for an upper endoscopy. I am hopeful we can pull all of this together and get her out of the hospital tomorrow afternoon. At this point she will remain in observation in the hospital for another night., Other
[2017-12-28] MEDS ORDERED: NAPROXEN 375 MG TABLET PO ONE (18:00)
--- NOTE | 2017-12-28 20:05 | PDOC CONSULTATION ---
Consultation Consult Date: 12/28/17 Attending physician:: ALEYDA COBURN Consult reason:: Chest pain History of Present Illness Admission Date/PCP: 12/27/17 16:48 ELOISE CROSS MD Patient complains of: Chest pain History of Present Illness: LULY SARMIENTO is a 52 year old female who was sent to the hospital by her primary care physician. The patient has a history of hypertension and hyperlipidemia. She has had increasing issues with chest discomfort over the past 6 weeks which is been worsening. She had an episode last that was so severe that she went and saw her primary care provider on Tuesday. He cecilia blood in the office. Apparently 1 of the test he ordered was a troponin which was reportedly elevated at 0.1. He called her and asked her to present to the hospital for further evaluation. At the time of admission the patient states that her chest pain is in the center of her chest. It radiates up into the neck and jaw. She states that the episode over the weekend felt as if she was shot in the chest with small hole in the front of the chest and then a large hole in her back. She states that she had severe back pain. She states the pain also radiates into her shoulder. She also complains of epigastric pain and right upper quadrant pain. She states that this gets quite severe at times as well. In regards to her chest pain she states that it is much worse with exertion. She states this past weekend she broke out into a sweat and became quite nauseated. It does relieve with rest when she sits down but if she lays flat the pain comes back. She also states that she has had a history of recurrent kidney stones. She states that she has been having increasing flank pain bilaterally. Also some left lower quadrant abdominal pain. Overall she just does not feel well. This history obtained by the hospitalist was reviewed myself, reviewed with the patient and confirmed. Today, patient underwent nuclear stress test. During nuclear stress test patient describes significant chest discomfort with some radiation to the back. However there were no EKG changes. Nuclear images subsequently came back negative for any ischemia. I was asked to see the patient to discuss the results, evaluate chest pain further in view of still chest pain being present. Patient describes multiple different kind of chest pains. Patient describes history of significant gastric reflux. She also describes inflammation of the sternum. She also describes some lower rib cage inflammation. Patient describes pleuritic chest pain and also chest pain which occurs on twisting and turning. Patient also noted to have significant chest wall tenderness. Past Medical History Cardiac Medical History: Reports: Hyperlipidema, Hypertension Pulmonary Medical History: Reports: None Denies: Chronic Obstructive Pulmonary Disease (COPD), Respiratory Failure EENT Medical History: Reports: None Neurological Medical History: Reports: None Endocrine Medical History: Reports: None Renal/ Medical History: Reports: Nephrolithiasis, Other - She has recurrent kidney stones. She has had obstructing stones requiring Malignancy Medical History: Reports: None GI Medical History: Reports: Gastroesophageal Reflux Disease Musculoskeltal Medical History: Reports: None Skin Medical History: Reports: None Psychiatric Medical History: Reports: Attention Deficit Hyperactivity Disorder Traumatic Medical History: Reports: None Hematology: Reports: None Infectious Medical History: Reports: None Past Surgical History Past Surgical History: Reports: Appendectomy, Section, Orthopedic Surgery - carpel tunnel Social History Information Source: Patient Lives with: Spouse/Significant other Smoking Status: Current Every Day Smoker Frequency of Alcohol Use: Rare Hx Recreational Drug Use: No Hx Prescription Drug Abuse: No - Advance Directive Resuscitation Status: Full Code Family History Family History: CAD Parental Family History Reviewed: Yes Children Family History Reviewed: Yes Sibling(s) Family History Reviewed.: Yes Medication/Allergy Home Medications: Amlodipine Besylate [Norvasc 5 mg Tablet] 5 mg PO DAILY 12/27/17 Benzonatate [Tessalon Perles 100 mg Capsule] 100 mg PO Q8HP PRN 12/27/17 Lisinopril/Hydrochlorothiazide [Lisinopril-Hctz 20-25 mg Tab] 1 tab PO DAILY 12/09 Lovastatin [Altoprev] 20 mg PO DAILY 12/27/17 Methylphenidate HCl [Ritalin] 10 mg PO DAILY 12/27/17 Methylphenidate HCl [Ritalin] 20 mg PO Q12 12/27/17 Metoclopramide HCl [Reglan] 5 mg PO Q6HP PRN 12/27/17 Omeprazole 20 mg PO Q12 12/27/17 Allergies/Adverse Reactions: codeine [Codeine] Allergy (Verified 12/27/17 11:46) doxycycline Allergy (Verified 12/27/17 11:46) Sulfa (Sulfonamide Antibiotics) Allergy (Verified 12/27/17 11:46) tetracycline [Tetracycline] Allergy (Verified 12/27/17 11:46) Review of Systems Review of Systems: Please see history of present illness and past medical history as wall. Constitutional: No fever or chills reported. Head : No recent chronic headaches, recent head injury. Eyes: No recent eye pain, diplopia, redness, discharge, acute visual changes. Ears: No recent chronic ear pain, acute hearing loss, ear discharge. Oral cavity: No recent ulcerations, bleeding, oral cavity discomfort. Neck: No recent acute neck pain reported. Hematologic: No recent easy bruising or bleeding. Lymphatic: No recent lymph node enlargement reported. Cardiovascular system review: See history of present illness. Respiratory system review: No hemoptysis or blood clots in the lungs reported. Mild Shortness of breath on exertion Gastrointestinal system review: Negative for any recent acute hematemesis, melena. Genitourinary system review: No recent acute or chronic hematuria, flank pain, UTI etc. reported. Skin system review: Negative for any recent abnormal bruising, no rash, no pruritus reported. Neurologic: No prior history of strokes, mini strokes, seizure disorder. Psychologic: No history of major psychosis or major depression reported. Musculoskeletal: Minor aches and pains reported. No acute joint swelling reported. Endocrine: No recent polyuria, polydipsia, recent heat or cold intolerance. Physical Exam Vital Signs: Temp Pulse Resp BP Pulse Ox 98.4 F 64 16 128/60 H 99 12/28/17 16:00 12/28/17 16:00 12/28/17 16:00 12/28/17 16:00 12/28/17 16:00 Intake & Output 12/27/17 12/28/17 12/29/17 06:59 06:59 06:59 Intake Total 670 1830 Output Total 2000 Balance -1330 1830 Weight 93.2 kg Exam: GENERAL: well-nourished and in no acute distress. Alert and oriented x3 HEAD: Atraumatic, normocephalic. EYES: Pupils equal round and reactive to light, extraocular movements intact, sclera anicteric, conjunctiva are normal. ENT: TMs normal, nares patent, oropharynx clear without exudates. Moist mucous membranes. No oral ulcerations or bleeding gums noted NECK: supple without lymphadenopathy. Trachea is central. No cervical or axillary lymphadenopathy noted. Carotids are 2+, JVD WNL LUNGS: Respiration seems nonlabored, no significant accessory muscle action noted. Breath sounds clear to auscultation bilaterally and equal noted. No wheezes rales or rhonchi noted. No significant dullness noted on percussion. CHEST: Palpation of the chest wall shows significant chest wall tenderness. HEART: [place] [employer], No PSH, 1/6 ALEX aortic area, 1/6 patel systolic murmur mitral area, no rubs, no gallops. ABDOMEN: Soft, no significant tenderness appreciated, normoactive bowel sounds. No guarding, no rebound. No rigidity noted . No masses appreciated. EXTREMITIES: Pedal pulses are 1-2+, no calf tenderness noted. No clubbing or cyanosis. negative pedal edema noted NEUROLOGICAL: Focused neurological exam showed no significant neurologic deficit. Normal speech, no focal weakness appreciated. PSYCH: Normal mood, normal affect. Judgment and insight within normal limits. SKIN: No significant ecchymosis, skin is noted to be warm. MUSCULOSKELETAL EXAM: No significant acute joint swelling noted. Results Laboratory Results: 12/28/17 04:46 12/28/17 12/28/17 04:46 04:46 Sodium 140.6 Potassium 4.2 Chloride 102 Carbon Dioxide 29 Anion Gap 10 BUN 18 Creatinine 0.77 Est GFR ( Amer) > 60 Est GFR (Non-Af Amer) > 60 Glucose 107 Calcium 9.9 Phosphorus 5.4 H Magnesium 1.9 Triglycerides 201 H Cholesterol 248.48 H LDL Cholesterol Direct 181 H VLDL Cholesterol 40.2 H HDL Cholesterol 38 L TSH 3.73 12/27/17 12/27/17 12/28/17 22:45 22:45 04:46 Creatine Kinase 153 H 135 CK-MB (CK-2) 1.00 Troponin I 0.026 12/28/17 04:46 Creatine Kinase CK-MB (CK-2) 0.92 Troponin I 0.026 EKG Comments: Shows sinus rhythm without any sustained tachycardia or bradycardia. Twelve- lead EKG shows sinus rhythm without any acute ST-T wave changes. Impressions: Abdomen/Pelvis CT 12/27/17 00:00 IMPRESSION: NO ACUTE FINDINGS WITHIN THE ABDOMEN OR PELVIS. HEPATIC STEATOSIS. NONOBSTRUCTING BILATERAL RENAL CALCULI. OVERALL NO SIGNIFICANT CHANGE FROM PRIOR STUDY PEER Chest X-Ray 12/27/17 11:44 IMPRESSION: NO ACUTE RADIOGRAPHIC FINDING IN THE CHEST. Assessment & Plan - Diagnosis (1) Chest pain Qualifiers: Chest pain type: unspecified Qualified Code(s): R07.9 - Chest pain, unspecified Is this a current diagnosis for this admission?: Yes (2) Obesity Qualifiers: Obesity type: unspecified obesity type Obesity classification: unspecified obesity classification Serious obesity comorbidity presence: unspecified whether serious comorbidity present Qualified Code(s): E66.9 - Obesity, unspecified Is this a current diagnosis for this admission?: Yes (3) Hyperlipidemia Qualifiers: Hyperlipidemia type: unspecified Qualified Code(s): E78.5 - Hyperlipidemia , unspecified Is this a current diagnosis for this admission?: Yes (4) Abdominal pain Qualifiers: Abdominal location: unspecified location Qualified Code(s): R10.9 - Unspecified abdominal pain Is this a current diagnosis for this admission?: Yes (5) Hypertension Qualifiers: Hypertension type: essential hypertension Qualified Code(s): I10 - Essential (primary) hypertension Is this a current diagnosis for this admission?: Yes - Notes Notes: Chest pain: Atypical by description. Twelve-lead EKGs has been relatively unremarkable. Troponin I also noted to be relatively unremarkable. It seems patient has significant musculoskeletal component, some pleuritic component and also GI component. At this point feel that best option would be for the patient to undergo endoscopy, evaluate for other noncardiac chest pain such as musculoskeletal, referred pain etc. Obesity: Patient has been encouraged in weight loss. Hyperlipidemia: Patient will benefit from statin therapy given that she has hypertension and now glycohemoglobin in the prediabetes range. Abdominal pain: Recommend further evaluation with GI consultation. Hypertension: Blood pressure under satisfactory control. - Time Time Spent: 30 to 50 Minutes - More than 50% of the time spent coordinating care , discussing management plans with involved caregivers. Management plans discussed with involved personnels. Medical decision making was of moderate to high complexity, patient's has multiple comorbidities. Medications reviewed and adjusted accordingly: Yes
--- NOTE | 2017-12-28 21:54 | RADIOLOGY REPORT (SQ) ---
EXAM DESCRIPTION: CTA CHEST COMPLETED DATE/TIME: 12/28/2017 9:04 pm REASON FOR STUDY: chest pain COMPARISON: 10/25/2017 TECHNIQUE: CT scan of the chest performed using helical scanning technique with dynamic intravenous contrast injection. Images reviewed with lung, soft tissue and bone windows. Reconstructed coronal and sagittal MPR images reviewed. Additional 3 dimensional post-processing performed to develop Maximal Intensity Projection images ([place] P). All images stored on PACS. All CT scanners at this facility use dose modulation, iterative reconstruction, and/or weight based d osing when appropriate to reduce radiation dose to as low as reasonably achievable (ALARA). [facility]: Dose Right [facility]: CareDose [facility]: Dose Right [facility]: Teradose 4D [facility]: Folloze CONTRAST TYPE AND DOSE: contrast/concentration: Isovue 370.00 mg/ml; Total Contrast Delivered: 73.0 ml; Total Saline Delivered: 70.0 ml Contrast bolus adequate for pulmonary arteries and aorta. RENAL FUNCTION: GFR > 60. RADIATION DOSE: CT Rad equipment meets quality standard of care and radiation dose reduction techniq ues were employed. CTDIvol: 13.2 - 20.0 mGy. DLP: 691 mGy-cm. . LIMITATIONS: None. FINDINGS: LUNGS AND PLEURA: No masses, infiltrates, pneumothorax. No pleural effusions, calcificati ons. AORTA AND GREAT VESSELS: No aneurysm. Contrast bolus not optimized for the aorta. HEART: No pericardial effusion. No significant coronary artery calcifications. PULMONARY ARTERIES: No emboli visualized in the main pulmonary arteries or the segmental branches. HILAR AND MEDIASTINAL STRUCTURES: No identified masses or abnormal nodes. HARDWARE: None in the chest. UPPER ABDOMEN: No significant findings. Limited exam. THYROID AND OTHER SOFT TISSUES: No masses. No adenopathy. BONES: No acute finding. 3D MIPS: Confirm above findings. OTHER: No other significant finding. IMPRESSION: No emboli visualized in the main pulmonary arteries or the segmental branches. No acute findings. COMMENT: Quality ID # [id number]: Final reports with documentation of one or more dose reduction techniques (e.g., Automated exposure control, adjustment of the mA and/or kV according to patient size, use of iterative reconstruction technique) TECHNICAL DOCUMENTATION: JOB ID: [id number] [place]-72 2010 [employer]- All Rights Reserved Reading location - IP/workstation name: [email or web address]
[2017-12-28] MEDS: ATORVASTATIN CALCIUM 10 MG TABLET PO SCH (21:56)
[2017-12-28] MEDS: PANTOPRAZOLE SODIUM 40 MG VIAL IV SCH (21:56)
[2017-12-29] MEDS: LANSOPRAZOLE 30 MG TAB.RAP.DR PO SCH (06:24)
[2017-12-29] MEDS ORDERED: ONDANSETRON 4 MG TAB.RAPDIS PO PRN (08:00)
[2017-12-29] MEDS ORDERED: DEXTROSE 50%-WATER 25 GM/50 ML DISP.SYRIN IV PRN ×2 (08:01)
[2017-12-29] MEDS ORDERED: DEXTROSE 40% GEL 15 GM TUBE PO PRN ×2 (08:01)
[2017-12-29] MEDS ORDERED: GLUCAGON,HUMAN RECOMB 1 MG INJ SUBCUT PRN (08:01)
[2017-12-29] MEDS ORDERED: NORMAL SALINE 1000 ML 1,000 ML IV PRN (08:42)
[2017-12-29] MEDS ORDERED: AMLODIPINE BESYLATE 5 MG TABLET PO SCH (10:00)
[2017-12-29] MEDS: PANTOPRAZOLE SODIUM 40 MG VIAL IV SCH (10:36)
[2017-12-29] MEDS: ENOXAPARIN SODIUM INJ 40 MG/0.4 ML DISP.SYRIN SUBCUT SCH (10:37)
--- NOTE | 2017-12-29 12:11 | Operative Report ---
Operative Report DATE OF SURGERY: 12/29/17 Operative Report: The risks benefits and alternatives of the procedure explained to the patient in detail and informed consent is obtained .A GIF Olympus video scope was inserted into the patient's mouth and hypopharynx, the esophagus is identified intubated and insufflated, the scope was then advanced through the esophagus stomach and duodenum, retroflexion maneuver is done, the esophagus stomach and first and second portions of the duodenum examined PREOPERATIVE DIAGNOSIS: Epigastric pain POSTOPERATIVE DIAGNOSIS: Gastritis status post biopsy rule out Helicobacter pylori OPERATION: EGD with biopsy SURGEON: ZORAIDA KWOK ANESTHESIA: LMAC TISSUE REMOVED OR ALTERED: As noted above COMPLICATIONS: None. ESTIMATED BLOOD LOSS: None. INTRAOPERATIVE FINDINGS: As noted above. PROCEDURE: Patient tolerated the procedure well. No immediate postprocedure complications are noted. Patient sent back to her room in good condition. Resume regular diet Resume regular activity level We will wait on pathology Follow-up as outpatient
--- NOTE | 2017-12-29 13:07 | XCELERA REPORT ---
[address] [address] Transthoracic Echocardiogram Report Name: LULY SARMIENTO Age: 52 yrs Gender: Female : 1965 Patient Status: Inpatient Patient Location: [address] [place] [address] Study Date: 12/29/2017 09:26 AM Procedure: A complete two-dimensional transthoracic echocardiogram was performed (2D, M-mode, spectral and color flow Doppler). The study was technically adequate with some images being suboptimal in quality. Reason For Study: Chest pain, rule out pericardial disease Ordering Physician: NIC MOJICA Performed By: Fiordaliza Shearer Interpretation Summary The left ventricular ejection fraction is normal. There is mild concentric left ventricular hypertrophy. LV diastolic function could not be adequately assessed. The left ventricle is grossly normal size. Wall motion cannot be accurately commented on, but no definite regional wall motion abnormalities noted. The right ventricular systolic function is normal. The right atrium is normal in size The left atrial size is normal. There is no mitral valve stenosis. There is a trace amount of mitral regurgitation There is no aortic valve stenosis No aortic regurgitation is present. There is no tricuspid stenosis. No tricuspid regurgitation. There is no pericardial effusion. MMode/2D Measurements & Calculations RVDd: 2.7 cm LVIDd: 3.3 cm FS: 38.4 % Ao root diam: 2.6 cm IVSd: 1.3 cm LVIDs: 2.0 cm EDV(Teich): 44.6 ml Ao root area: 5.2 cm2 LVPWd: 1.4 cm ESV(Teich): 13.4 ml EF(Teich): 70.0 % LVOT diam: 1.9 cm LVOT area: 2.9 cm2 Doppler Measurements & Calculations MV E max arturo: MV dec slope: Ao V2 max: LV V1 max P.8 cm/sec 124.2 cm/sec 4.5 mmHg MV A max arturo: 456.5 cm/sec2 Ao max PG: LV V1 max: 84.3 cm/sec MV dec time: 6.2 mmHg 105.7 cm/sec MV E/A: 1.2 0.22 sec JEANIE(V,D): 2.4 cm2 PA V2 max: Pulm Sys Arturo: 102.3 cm/sec 56.1 cm/sec PA max PG: Pulm Espinoza Arturo: 4.2 mmHg 43.1 cm/sec Pulm A Revs Arturo: 30.3 cm/sec Pulm A Revs Dur: 0.12 sec Pulm S/D: 1.3 Left Ventricle The left ventricle is grossly normal size. There is mild concentric left ventricular hypertrophy. The left ventricular ejection fraction is normal. LV diastolic function could not be adequately assessed. Wall motion cannot be accurately commented on, but no definite regional wall motion abnormalities noted. Right Ventricle The right ventricle is grossly normal size. There is normal right ventricular wall thickness. The right ventricular systolic function is normal. Atria The right atrium is normal in size. The left atrial size is normal. Interarterial septum not well visualized and not well dopplered. Cannot comment on ASD/PFO presence. Mitral Valve The mitral valve is grossly normal. There is no mitral valve stenosis. There is a trace amount of mitral regurgitation. Aortic Valve The aortic valve is grossly normal. There is no aortic valve stenosis. No aortic regurgitation is present. Tricuspid Valve The tricuspid valve is not well visualized, but is grossly normal. There is no tricuspid stenosis. No tricuspid regurgitation. Pulmonic Valve The pulmonic valve is not well visualized. Great Vessels The aortic root is not well visualized but is probably normal size. The inferior vena cava was not well visualized. Effusions There is no pericardial effusion. : NIC MOJICA > Nic Mojica
[2017-12-29] MEDS: HYDROCHLOROTHIAZIDE 25 MG TABLET PO SCH (13:55)
[2017-12-29] MEDS: LISINOPRIL 10 MG TABLET PO SCH (13:56)
[2017-12-29] MEDS: NAPROXEN 375 MG TABLET PO SCH ×2 (14:00→16:14)
[2017-12-29 16:53] VITALS: BP 130/75
--- NOTE | 2017-12-29 16:59 | PDOC DISCHARGE SUMMARY ---
General - Admit/Disc Date/PCP Admission Date/Primary Care Provider: 12/27/17 16:48 ELOISE CROSS MD Animation Camera Operator: Dr. Mojica School Manager: Dr. Lane Discharge Date: 12/29/17 - Discharge Diagnosis (1) Chest pain Is this a current diagnosis for this admission?: Yes Summary: Likely GI in nature. She will follow-up with Dr. Lane as an outpatient. (2) Kidney stones Is this a current diagnosis for this admission?: Yes Summary: Stable (3) Abdominal pain Is this a current diagnosis for this admission?: Yes Summary: Likely due to gastritis. She will be sent out on twice daily Protonix (4) Hypertension Is this a current diagnosis for this admission?: Yes Summary: She will resume her home regimen (5) ADHD Is this a current diagnosis for this admission?: Yes Summary: Continue her home dose of Ritalin (6) Morbid obesity Is this a current diagnosis for this admission?: Yes Summary: Certainly she would benefit from weight loss. (7) Full code status Is this a current diagnosis for this admission?: Yes - Additional Information Resuscitation Status: Full Code Discharge Diet: Regular Discharge Activity: Activity As Tolerated Prescriptions: Pantoprazole Sodium [Protonix] 40 mg PO BID #60 tablet. Home Medications: Amlodipine Besylate [Norvasc 5 mg Tablet] 5 mg PO DAILY 12/27/17 Benzonatate [Tessalon Perles 100 mg Capsule] 100 mg PO Q8HP PRN 12/27/17 Lisinopril/Hydrochlorothiazide [Lisinopril-Hctz 20-25 mg Tab] 1 tab PO DAILY 12/09 Lovastatin [Altoprev] 20 mg PO DAILY 12/27/17 Methylphenidate HCl [Ritalin] 10 mg PO DAILY 12/27/17 Methylphenidate HCl [Ritalin] 20 mg PO Q12 12/27/17 Pantoprazole Sodium [Protonix] 40 mg PO BID #60 tablet. 12/29/17 History of Present Illness History of Present Illness: LULY SARMIENTO is a 52 year old female who was sent to the hospital by her primary care physician. The patient has a history of hypertension and hyperlipidemia. She has had increasing issues with chest discomfort over the past 6 weeks which is been worsening. She had an episode last weekend that was so severe that she went and saw her primary care provider on Tuesday. He cecilia blood in the office. Apparently 1 of the test he ordered was a troponin which was reportedly elevated at 0.1. He called her and asked her to present to the hospital for further evaluation. At the time of admission the patient states that her chest pain is in the center of her chest. It radiates up into the neck and jaw. She states that the episode over the weekend felt as if she was shot in the chest with small hole in the front of the chest and then a large hole in her back. She states that she had severe back pain. She states the pain also radiates into her shoulder. She also complains of epigastric pain and right upper quadrant pain. She states that this gets quite severe at times as well. In regards to her chest pain she states that it is much worse with exertion. She states this past weekend she broke out into a sweat and became quite nauseated. It does relieve with rest when she sits down but if she lays flat the pain comes back. She also states that she has had a history of recurrent kidney stones. She states that she has been having increasing flank pain bilaterally. Also some left lower quadrant abdominal pain. Overall she just does not feel well. Hospital Course Hospital Course: The patient was admitted to the hospital. Her serial troponins remained negative overnight. The patient has had an extensive workup. She had a Cardiolite stress test which revealed no evidence of reversible ischemia. She had normal left ventricular function. She had a 2D cardiac echo with no abnormalities noted. She had a CT angiography of the chest which was totally normal as well. Was felt that her issues with recurrent chest pain and abdominal pain are likely GI in nature. I spoke to Dr. Lane from the GI service who graciously came into the hospital to perform an upper endoscopy on the patient. She was found to have evidence of gastritis. Biopsies were taken to rule out H. pylori. He recommended PPI therapy. At this point we believe that the most likely cause of the patient's chest pain and abdominal pain is likely GI in nature. She may be having esophageal spasms due to uncontrolled GERD. I am going to place her on Protonix 40 mg twice daily. We will get her an appointment to follow-up with her primary care provider as well as Dr. Lane. All of this is been explained to the patient and all of her questions have been answered on the day of discharge. Physical Exam Vital Signs: Temp Pulse Resp BP Pulse Ox 97.5 F 70 18 128/60 H 99 12/29/17 16:39 12/29/17 16:39 12/29/17 16:39 12/29/17 16:39 12/29/17 16:39 Intake & Output 12/28/17 12/29/17 12/30/17 06:59 06:59 06:59 Intake Total 670 2480 950 Output Total 2000 600 0 Balance -1330 1880 950 Weight 93.2 kg 95.6 kg 95.6 kg General appearance: PRESENT: no acute distress, well-developed, well-nourished Head exam: PRESENT: atraumatic, normocephalic Ear exam: PRESENT: normal external ear exam Neck exam: ABSENT: carotid bruit, JVD, lymphadenopathy, thyromegaly Respiratory exam: PRESENT: clear to auscultation sam. ABSENT: rales, rhonchi, wheezes Cardiovascular exam: PRESENT: RRR. ABSENT: diastolic murmur, rubs, systolic murmur Pulses: PRESENT: normal dorsalis pedis pul GI/Abdominal exam: PRESENT: normal bowel sounds, soft. ABSENT: distended, guarding, mass, organolmegaly, rebound, tenderness Rectal exam: PRESENT: deferred Extremities exam: PRESENT: full ROM. ABSENT: calf tenderness, clubbing, pedal edema Musculoskeletal exam: PRESENT: ambulatory Neurological exam: PRESENT: alert, awake, oriented to person, oriented to place , oriented to time, oriented to situation, CN II-XII grossly intact. ABSENT: motor sensory deficit Psychiatric exam: PRESENT: appropriate affect, normal mood. ABSENT: homicidal ideation, suicidal ideation Skin exam: PRESENT: dry, intact, warm. ABSENT: cyanosis, rash Results Laboratory Results: 12/28/17 04:46 12/27/17 12/27/17 12/28/17 22:45 22:45 04:46 Creatine Kinase 153 H 135 CK-MB (CK-2) 1.00 Troponin I 0.026 12/28/17 04:46 Creatine Kinase CK-MB (CK-2) 0.92 Troponin I 0.026 Impressions: Abdomen/Pelvis CT 12/27/17 00:00 IMPRESSION: NO ACUTE FINDINGS WITHIN THE ABDOMEN OR PELVIS. HEPATIC STEATOSIS. NONOBSTRUCTING BILATERAL RENAL CALCULI. OVERALL NO SIGNIFICANT CHANGE FROM PRIOR STUDY PEER Chest X-Ray 12/27/17 11:44 IMPRESSION: NO ACUTE RADIOGRAPHIC FINDING IN THE CHEST. Chest/Abdomen CTA 12/28/17 00:00 IMPRESSION: No emboli visualized in the main pulmonary arteries or the segmental branches. No acute findings. Qualifiers - * PATIENT BEING DISCHARGED WITH ANY OF THE FOLLOWING DIAGNOSIS: No Plan Discharge Plan: The patient will be discharged home today with close outpatient follow-up. She is stable on the day of discharge Time Spent: Greater than 30 Minutes
[2017-12-29] MEDS ORDERED: LANSOPRAZOLE 30 MG TAB.RAP.DR PO SCH (17:00)
--- NOTE | 2017-12-29 19:54 | PDOC PROGRESS REPORT ---
Subjective Progress Note for:: 12/29/17 Subjective:: Patient seems to be doing better with gradual improvement. Patient however today complains of epigastric discomfort. Pt is denying any chest arm or neck discomfort. Patient denying any PND, orthopnea. Patient denied any sustained palpitations, dizziness, syncope, near syncope. Patient denying any fever chills. Patient denying any other significant discomfort. Patient is maintaining sinus rhythm. Review of systems: Rest review of systems negative. Medications: Medications have been reviewed. Reason For Visit: CHEST PAIN AND ABDOMINAL PAIN Physical Exam Vital Signs: Temp Pulse Resp BP Pulse Ox 97.5 F 70 18 128/60 H 99 12/29/17 16:39 12/29/17 16:39 12/29/17 16:39 12/29/17 16:39 12/29/17 16:39 Intake & Output 12/28/17 12/29/17 12/30/17 06:59 06:59 06:59 Intake Total 670 2480 950 Output Total 2000 600 0 Balance -1330 1880 950 Weight 93.2 kg 95.6 kg 95.6 kg Exam: GENERAL: well-nourished and in no acute distress. Alert and oriented x3 HEAD: Atraumatic, normocephalic. EYES: Pupils equal round and reactive to light, extraocular movements intact, sclera anicteric, conjunctiva are normal. ENT: TMs normal, nares patent, oropharynx clear without exudates. Moist mucous membranes. No oral ulcerations or bleeding gums noted NECK: supple without lymphadenopathy. Trachea is central. No cervical or axillary lymphadenopathy noted. Carotids are 2+, JVD WNL LUNGS: Respiration seems nonlabored, no significant accessory muscle action noted. Breath sounds clear to auscultation bilaterally and equal noted. No wheezes rales or rhonchi noted. No significant dullness noted on percussion. CHEST: Palpation of the chest wall shows no significant chest wall tenderness. HEART: [place] SLACKMAN, No PSH, 1/6 ALEX aortic area, 1/6 patel systolic murmur mitral area, no rubs, no gallops. ABDOMEN: Soft, significant epigastric tenderness appreciated, normoactive bowel sounds. No guarding, no rebound. No rigidity noted . No masses appreciated. EXTREMITIES: Pedal pulses are 1-2+, no calf tenderness noted. No clubbing or cyanosis. negative pedal edema noted NEUROLOGICAL: Focused neurological exam showed no significant neurologic deficit. Normal speech, no focal weakness appreciated. PSYCH: Normal mood, normal affect. Judgment and insight within normal limits. SKIN: No significant ecchymosis, skin is noted to be warm. MUSCULOSKELETAL EXAM: No significant acute joint swelling noted. Results Laboratory Results: 12/28/17 04:46 12/27/17 12/27/17 12/28/17 22:45 22:45 04:46 Creatine Kinase 153 H 135 CK-MB (CK-2) 1.00 Troponin I 0.026 12/28/17 04:46 Creatine Kinase CK-MB (CK-2) 0.92 Troponin I 0.026 EKG Comments: Telemetry strip shows sinus rhythm without any sustained tachycardia or bradycardia. Impressions: Abdomen/Pelvis CT 12/27/17 00:00 IMPRESSION: NO ACUTE FINDINGS WITHIN THE ABDOMEN OR PELVIS. HEPATIC STEATOSIS. NONOBSTRUCTING BILATERAL RENAL CALCULI. OVERALL NO SIGNIFICANT CHANGE FROM PRIOR STUDY PEER Chest X-Ray 12/27/17 11:44 IMPRESSION: NO ACUTE RADIOGRAPHIC FINDING IN THE CHEST. Chest/Abdomen CTA 12/28/17 00:00 IMPRESSION: No emboli visualized in the main pulmonary arteries or the segmental branches. No acute findings. Assessment & Plan - Diagnosis (1) Chest pain Qualifiers: Chest pain type: unspecified Qualified Code(s): R07.9 - Chest pain, unspecified Is this a current diagnosis for this admission?: Yes (2) Obesity Qualifiers: Obesity type: unspecified obesity type Obesity classification: unspecified obesity classification Serious obesity comorbidity presence: unspecified whether serious comorbidity present Qualified Code(s): E66.9 - Obesity, unspecified Is this a current diagnosis for this admission?: Yes (3) Hyperlipidemia Qualifiers: Hyperlipidemia type: unspecified Qualified Code(s): E78.5 - Hyperlipidemia , unspecified Is this a current diagnosis for this admission?: Yes (4) Abdominal pain Qualifiers: Abdominal location: unspecified location Qualified Code(s): R10.9 - Unspecified abdominal pain Is this a current diagnosis for this admission?: Yes (5) Hypertension Qualifiers: Hypertension type: essential hypertension Qualified Code(s): I10 - Essential (primary) hypertension Is this a current diagnosis for this admission?: Yes (6) Tobacco abuse Is this a current diagnosis for this admission?: Yes - Notes Notes: Chest pain: Patient claims chest pain is resolved. This was evaluated with a nuclear stress test. Nuclear stress test was negative for any significant areas of ischemia or any significant areas of scar. The nuclear stress test is felt to be relatively low risk. Patient informed that occasionally single- vessel disease and balanced ischemia could be missed. Patient advised aggressive risk factor modification and medical therapy. Patient informed that further evaluation may become necessary if symptoms worsens or there is a development of new symptoms indicative of angina or angina equivalent symptom. Abdominal/epigastric discomfort: Today this was her main complaint. Patient to undergo upper GI endoscopy. Hypertension: Blood pressure under good control. Tobacco abuse: Patient advised in tobacco cessation. Hyperlipidemia: Have increased Lipitor to 20 mg p.o. nightly. Obesity: Patient advised and weight loss. 2D echocardiogram results were discussed. Patient noted to have normal LVEF. Considerable time spent discussing results of nuclear stress test, 2D echocardiogram and further evaluation as needed as an outpatient. - Time Time with patient: Greater than 35 minutes - CODE STATUS was discussed, patient remains full code. Surrogate decision-maker Paul Lipscomb. Multiple medical problems were addressed. More than 50% of the time spent coordinating care, discussing management plans with involved caregivers. Management plans discussed with involved personnels. Medical decision making was of moderate to high complexity, patient's has multiple comorbidities. Medications reviewed and adjusted accordingly: Yes
[2017-12-29] MEDS ORDERED: ATORVASTATIN CALCIUM 20 MG TABLET PO SCH (22:00)
== END 2017-12-29 17:38 | disposition home or self-care (01) ==
LOC: ER 11:35 → EH 16:48 → 4S 18:33
PROVIDERS: ADMIT Internal Medicine; ATTEND Internal Medicine
PROC: 0DB68ZX Excision of Stomach, Via Natural or Artificial Opening Endoscopic, Diagnostic (ICD-10-PCS; principal; 2017-12-29 11:45)
DX: R07.89 Other chest pain (principal); N20.0 Calculus of kidney; K29.50 Unspecified chronic gastritis without bleeding; I10 Essential (primary) hypertension; F90.9 Attention-deficit hyperactivity disorder, unspecified type; E66.01 Morbid (severe) obesity due to excess calories; E78.5 Hyperlipidemia, unspecified; M54.9 Dorsalgia, unspecified; F17.200 Nicotine dependence, unspecified, uncomplicated; K21.9 Gastro-esophageal reflux disease without esophagitis; R06.02 Shortness of breath; R73.03 Prediabetes; R60.9 Edema, unspecified; Z68.41 Body mass index [BMI] 40.0-44.9, adult; Z79.899 Other long term (current) drug therapy; Z90.49 Acquired absence of other specified parts of digestive tract; Z82.49 Family history of ischemic heart disease and other diseases of the circulatory system; Z87.442 Personal history of urinary calculi; Z98.890 Other specified postprocedural states
CPT/HCPCS: 93005 ×2; 99285; 43239; 36415 ×2; 87086; 82553 ×2; 82550 ×2; 83690; 83735; 84100; 84443; 85025; 80076; 80048 ×2; 81001; 84484 ×2; 83036; 82330; 80061; 88305 ×2; 93306; 93017; 71046; 78452; 71275; 74177; 93010 ×2; G0378 ×4; A9500; J2785; S0119; J3490 ×5; J1650; S0164 ×2; J7030; Q9969; 731

== ENCOUNTER 2019-05-02 13:41 | Emergency (ER) | payer BC ==
[2019-05-02] MEDS ORDERED: ONDANSETRON HCL INJ/PF 4 MG/2 ML SDV IV ONE ×2 (14:37→17:12)
[2019-05-02] MEDS ORDERED: MORPHINE SULFATE 10 MG/ML INJ IV ONE ×2 (14:37→17:11)
[2019-05-02] MEDS ORDERED: NORMAL SALINE 1000 ML 1,000 ML IV ONE (14:38)
--- NOTE | 2019-05-02 14:41 | ER Document Report ---
ED Medical Screen (RME) - General Chief Complaint: Abdominal Pain Stated Complaint: SEVER PAIN GALL BLADDER OR PANCREAS Time Seen by Provider: 05/02/19 14:33 Primary Care Provider: ELOISE CROSS MD [Primary Care Provider] - Follow up as needed Notes: Patient is a 54-year-old female who presents emergency department with a chief complaint of right upper quadrant abdominal pain. She states it is a dull ache. She also has right flank pain. Her symptoms started 4 days ago. She also had some associated nauseated 2 days prior. She states she has felt nauseated the whole time. She states that she has been in menopause from past couple years. Denies any cough. Exam: Very tender right upper quadrant and right flank area. I have greeted and performed a rapid initial assessment of this patient. A comprehensive ED assessment and evaluation of the patient, analysis of test results and completion of medical decision making process will be conducted by an additional ED providers. TRAVEL OUTSIDE OF THE [place] IN LAST 30 DAYS: No - Related Data Allergies/Adverse Reactions: codeine [Codeine] Allergy (Verified 12/27/17 11:46) doxycycline Allergy (Verified 12/27/17 11:46) ketorolac [From Toradol] Allergy (Verified 05/02/19 14:34) Sulfa (Sulfonamide Antibiotics) Allergy (Verified 12/27/17 11:46) tetracycline [Tetracycline] Allergy (Verified 12/27/17 11:46) Past Medical History - Past Medical History Cardiac Medical History: Reports: Hx Hypercholesterolemia, Hx Hypertension Pulmonary Medical History: Denies: Hx COPD, Hx Respiratory Failure Renal/ Medical History: Reports: Hx Kidney Stones. Denies: Hx Peritoneal Dialysis GI Medical History: Reports: Hx Gastroesophageal Reflux Disease Psychiatric Medical History: Reports: Hx Attention Deficit Hyperactivity Disorder Past Surgical History: Reports: Hx Abdominal Surgery - laproscopy, Hx Appendectomy, Hx Section, Hx Kidney (Renal Surgery), Hx Orthopedic Surgery - carpel tunnel - Immunizations Immunizations up to date: Yes Hx Diphtheria, Pertussis, Tetanus Vaccination: Yes Physical Exam - Vital signs Vitals: Temp Pulse Resp BP Pulse Ox 98.5 F 115 H 18 136/80 H 94 05/02/19 14:17 05/02/19 14:17 05/02/19 14:17 05/02/19 14:17 05/02/19 14:17 Course - Vital Signs Vital signs: Temp Pulse Resp BP Pulse Ox 98.5 F 115 H 18 136/80 H 94 05/02/19 14:17 05/02/19 14:17 05/02/19 14:17 05/02/19 14:17 05/02/19 14:17 Doctor's Discharge - Discharge Referrals: ELOISE CROSS MD [Primary Care Provider] - Follow up as needed
[2019-05-02 15:24] LABS: APPEARANCE,URINE CLEAR; BILIRUBIN,URINE NEGATIVE (NEGATIVE); COLOR,URINE STRAW; GLUCOSE, URINE NEGATIVE (NEGATIVE); KETONES,URINE NEGATIVE (NEGATIVE); LEUKOCYTE ESTERASE,URINE NEGATIVE (NEGATIVE); NITRITE,URINE NEGATIVE (NEGATIVE); PROTEIN,URINE NEGATIVE (NEGATIVE); URINE SPECIFIC GRAVITY 1.012; UROBILINOGEN,URINE NEGATIVE mg/dL (<2.0)
[2019-05-02 15:34] LABS: ABSOLUTE BASOPHILS # (AUTO) 0.1 10^3/uL (0.0-0.2); ABSOLUTE EOSINOPHILS # (AUTO) 0.1 10^3/uL (0.0-0.6); ABSOLUTE LYMPHOCYTES (AUTO) 2.8 10^3/uL (0.5-4.7); ABSOLUTE MONOCYTES (AUTO) 0.7 10^3/uL (0.1-1.4); ABSOLUTE NEUT (AUTO) 6.7 10^3/uL (1.7-8.2); BASOPHILS % (AUTO) 0.6 % (0-2); EOSINOPHILS % (AUTO) 1.2 % (0-6); HEMATOCRIT 41.9 % (36.0-47.0); HEMOGLOBIN 14.2 g/dL (12.0-15.5); LYMPHOCYTES % (AUTO) 26.6 % (13-45); MEAN CORPUSCULAR HEMOGLOBIN 29.4 pg (27.0-33.4); MEAN CORPUSCULAR HGB CONC 33.9 g/dL (32.0-36.0); MEAN CORPUSCULAR VOLUME 87 fl (80-97); MONOCYTES % (AUTO) 6.6 % (3-13); PLATELET COUNT 319 10^3/uL (150-450); RED BLOOD COUNT 4.83 10^6/uL (3.72-5.28); RED CELL DISTRIBUTION WIDTH 15.4 % (11.5-14.0); TOTAL CELLS COUNTED % (AUTO) 100 %; WHITE BLOOD COUNT 10.4 10^3/uL (4.0-10.5)
[2019-05-02 15:48] LABS: ALBUMIN 4.9 g/dL (3.5-5.0); ALKALINE PHOSPHATASE 92 U/L (38-126); ANION GAP 11 (5-19); ASPARTATE AMINO TRANSFERASE 26 U/L (14-36); BILIRUBIN,DIRECT 0.1 mg/dL (0.0-0.4); BILIRUBIN,TOTAL 0.3 mg/dL (0.2-1.3); BLOOD UREA NITROGEN 21 mg/dL (7-20); CALCIUM 10.1 mg/dL (8.4-10.2); CARBON DIOXIDE 30 mmol/L (22-30); CHLORIDE 98 mmol/L (98-107); GLUCOSE 123 mg/dL (75-110); POTASSIUM 3.9 mmol/L (3.6-5.0); TOTAL PROTEIN 8.3 g/dL (6.3-8.2)
--- NOTE | 2019-05-02 18:49 | RADIOLOGY REPORT (SQ) ---
EXAM DESCRIPTION: CT ABD/PELVIS WITH IV ONLY COMPLETED DATE/TIME: 05/02/2019 6:33 pm REASON FOR STUDY: abdominal pain COMPARISON: 12/27/2017 TECHNIQUE: CT scan of the abdomen and pelvis performed using helical scanning technique with dynamic intravenous contrast injection. No oral contrast. Images reviewed with lung, soft tissue, and bone windows. Reconstructed coronal and sagittal MPR images reviewed. Delayed images for evaluation of the urinary system also acquired. All images stored on PACS. All CT scanners at this facility use dose modulation, iterative reconstruction, and/or weight based d osing when appropriate to reduce radiation dose to as low as reasonably achievable (ALARA). [facility]: Dose Right [facility]: CareDose [facility]: Dose Right [facility]: Teradose 4D [facility]: [email or web address] CONTRAST TYPE AND DOSE: contrast/concentration: Isovue 350.00 mg/ml; Total Contrast Delivered: 100.0 ml; Total Saline Delivered: 72.0 ml RENAL FUNCTION: BUN 21, creatinine 0.8 RADIATION DOSE: CT Rad equipment meets quality standard of care and radiation dose reduction techniq ues were employed. CTDIvol: 17.4 - 19.7 mGy. DLP: 1947 mGy-cm.. LIMITATIONS: None. FINDINGS: LOWER CHEST: No significant findings. No nodules or infiltrates. LIVER: There is decreased attenuation throughout the liver consistent with fatty infiltration. SPLEEN: Normal size. No focal lesions. PANCREAS: No masses. No significant calcifications. No adjacent inflammation or peripancreatic fluid collections. Pancreatic duct not dilated. GALLBLADDER: No identified stones by CT criteria. No inflammatory changes to suggest cholecystitis. ADRENAL GLANDS: No significant masses or asymmetry. RIGHT KIDNEY AND URETER: No solid masses. There are small nonobstructing right renal calculi. No hydronephrosis or hydroureter. LEFT KIDNEY AND URETER: No solid masses. There are small nonobstructing left renal calculi. No hy dronephrosis or hydroureter. AORTA AND VESSELS: No aneurysm. No dissection. Renal arteries, SMA, celiac without stenosis. RETROPERITONEUM: No retroperitoneal adenopathy, hemorrhage or masses. BOWEL AND PERITONEAL CAVITY: No masses or inflammatory changes. No free fluid or peritoneal masses. APPENDIX: Surgically absent. PELVIS: No mass. No free fluid. Normal bladder. ABDOMINAL WALL: No masses. No hernias. BONES: No significant or acute findings. OTHER: No other significant finding. IMPRESSION: Small nonobstructing bilateral renal calculi. No other significant findings in the abdo men or pelvis. Hepatic steatosis unchanged. TECHNICAL DOCUMENTATION: JOB ID: [id number] Quality ID # [id number]: Final reports with documentation of one or more dose reduction techniques (e.g., Au tomated exposure control, adjustment of the mA and/or kV according to patient size, use of iterative reconstruction technique) 2010 [employer]- All Rights Reserved Reading location - IP/workstation name: [email or web address]
[2019-05-02] MEDS ORDERED: HYDROMORPHONE HCL INJ/PF 2 MG/ML AMPULE IV ONE (20:26)
--- NOTE | 2019-05-02 20:35 | ER Document Report ---
ED GI/ - General Chief Complaint: Abdominal Pain Stated Complaint: SEVER PAIN GALL BLADDER OR PANCREAS Time Seen by Provider: 05/02/19 14:33 Notes: Patient is a 54-year-old female that comes to the Emergency Department for chief complaint of right upper abdominal paini radiating around to the right flank. She reports nausea but denies vomiting. Pain comes in waves, this has been worsening for the past 4 days. She is able to eat but is doing so less. Sometimes it worsening with food. She denies fever. She was constipated but already self treated and this resolved. She has had an appendectomy, , and is treated for hypertension. She smokes, denies alcohol or recreational drugs. TRAVEL OUTSIDE OF THE [place] IN LAST 30 DAYS: No - Related Data Allergies/Adverse Reactions: codeine [Codeine] Allergy (Verified 12/27/17 11:46) doxycycline Allergy (Verified 12/27/17 11:46) ketorolac [From Toradol] Allergy (Verified 05/02/19 14:34) Sulfa (Sulfonamide Antibiotics) Allergy (Verified 12/27/17 11:46) tetracycline [Tetracycline] Allergy (Verified 12/27/17 11:46) Past Medical History - General Information source: Patient - Social History Smoking Status: Never Smoker Chew tobacco use (# tins/day): No Frequency of alcohol use: None Drug Abuse: None Lives with: Family Family History: CAD Patient has suicidal ideation: No Patient has homicidal ideation: No - Past Medical History Cardiac Medical History: Reports: Hx Hypercholesterolemia, Hx Hypertension Pulmonary Medical History: Denies: Hx COPD, Hx Respiratory Failure Renal/ Medical History: Reports: Hx Kidney Stones. Denies: Hx Peritoneal Dialysis GI Medical History: Reports: Hx Gastroesophageal Reflux Disease Psychiatric Medical History: Reports: Hx Attention Deficit Hyperactivity Disorder Past Surgical History: Reports: Hx Abdominal Surgery - laproscopy, Hx Appendectomy, Hx Section, Hx Kidney (Renal Surgery), Hx Orthopedic Surgery - carpel tunnel - Immunizations Immunizations up to date: Yes Hx Diphtheria, Pertussis, Tetanus Vaccination: Yes Hx Pneumococcal Vaccination: 07/25/00 Review of Systems - Review of Systems Constitutional: No symptoms reported EENT: No symptoms reported Cardiovascular: No symptoms reported Respiratory: No symptoms reported Gastrointestinal: See HPI Genitourinary: No symptoms reported Female Genitourinary: No symptoms reported Musculoskeletal: No symptoms reported Skin: No symptoms reported Hematologic/Lymphatic: No symptoms reported Neurological/Psychological: No symptoms reported Physical Exam - Vital signs Vitals: Temp Pulse Resp BP Pulse Ox 98.5 F 115 H 18 136/80 H 94 05/02/19 14:17 05/02/19 14:17 05/02/19 14:17 05/02/19 14:17 05/02/19 14:17 - Notes Notes: GENERAL: Alert, interacts well. No acute distress. HEAD: Normocephalic, atraumatic. EYES: Pupils equal, round, and reactive to light. Extraocular movements intact. ENT: Oral mucosa moist, tongue midline. Oropharynx unremarkable. Airway patent. NECK: Full range of motion. Supple. Trachea midline. LUNGS: Clear to auscultation bilaterally, no wheezes, rales, or rhonchi. No respiratory distress. HEART: Regular rate and rhythm. No murmur ABDOMEN: Mild tenderness of the generalized upper abdomen. No guarding. No distention. Bowel sounds present in all 4 quadrants. GENITOURINARY: Deferred EXTREMITIES: Moves all 4 extremities spontaneously. No edema, normal radial and dorsalis pedis pulses bilaterally. No cyanosis. BACK: no cervical, thoracic, lumbar midline tenderness. No saddle anesthesia, normal distal neurovascular exam. Moves all extremities in full range of motion. NEUROLOGICAL: Alert and oriented x3. Normal speech. Cranial nerves II through XII grossly intact. PSYCH: Normal affect, normal mood. SKIN: Warm, dry, normal turgor. No rashes or lesions noted. Course - Re-evaluation Re-evalutation: On my evaluation patient has some generalized epigastric tenderness without guarding, she is extremely talkative, she is well-appearing. She is not tachycardic. She is not febrile. CBC, chemistry, lipase borderline. Urinalysis unremarkable. I did review CAT scan from triage, this shows nephrolithiasis but no acute findings. Right upper quadrant ultrasound will be performed, this was discussed with patient, she was given additional pain medications for this to be performed. Ultrasound is normal. Nurse came to me and told me that patient is requesting to leave now. I discussed with patient, I discussed the results. Patient became frustrated, she asks what is wrong with her, I discussed that she may need a HIDA scan, treatment for possible gastritis type symptoms, and close follow-up. At first patient became more frustrated but then afterwards she states agreement with this plan. She was able to tolerate p.o. without difficulty. She will be provided with symptom management and she states she will follow-up closely with her provider to have her tests performed. Stable at time of discharge. - Vital Signs Vital signs: Temp Pulse Resp BP Pulse Ox 98.1 F 97 17 133/69 H 95 05/02/19 22:24 05/02/19 22:24 05/02/19 22:24 05/02/19 22:24 05/02/19 22:24 - Laboratory Result Diagrams: 05/02/19 15:06 05/02/19 15:06 Laboratory results interpreted by me: 05/02/19 05/02/19 15:06 15:06 RDW 15.4 H BUN 21 H Glucose 123 H Total Protein 8.3 H Lipase 433.9 H Discharge - Discharge Clinical Impression: Upper abdominal pain, Nausea Condition: Stable Disposition: HOME, SELF-CARE Additional Instructions: Your imaging shows small kidney stones in the kidneys but no passing stone is seen. No concerning abnormality is seen but I am concerned about your location of the pain in the symptoms you are having. You may have either gallbladder dyskinesis or inflammation of the upper abdominal tract. Take medication as prescribed, take the pain and nausea medications if needed, follow close with primary care for additional evaluation and management of this. Return if you worsen including severe worsening pain, vomiting, fever, or any other concerning or worsening symptoms. Prescriptions: Hydrocodone/Acetaminophen [[place] 5-325 mg Tablet] 1 - 2 tab PO ASDIR #12 tablet Famotidine [Pepcid 20 mg Tablet] 20 mg PO BID #20 tablet Ondansetron [Zofran Odt 4 mg Tablet] 1 - 2 tab PO Q4H PRN #15 tab.rapdis PRN Reason: For Nausea/Vomiting
--- NOTE | 2019-05-02 21:54 | RADIOLOGY REPORT (SQ) ---
US ABDOMEN LIMITED EXAM DATE: 05/02/2019 8:26 PM CDT HISTORY: Right upper quadrant pain. COMPARISON: CT scan from earlier the same day. TECHNIQUE: Grayscale and color Doppler imaging of the right upper quadrant was performed. FINDINGS: There is increased echogenicity of the hepatic parenchyma, likely representing hepatic steatosis. The main portal vein has normal hepatopetal flow. No shadowing gallstones are seen. No pericholecystic fluid or gallbladder wall thickening. The common bile duct is normal caliber. The pancreas is not well-visualized due to overlying bowel gas. No hydronephrosis or shadowing renal stones are identified. The right kidney is normal in size. There is a nonshadowing echogenic structure in the lower pole, nonspecific. The visualized portions of the IVC and aorta are patent. IMPRESSION: 1. No gallstones or acute cholecystitis. 2. Tiny nonobstructing right renal stone. 3. Hepatic steatosis.
[2019-05-02 22:44] VITALS: BP 133/69
== END 2019-05-02 22:41 | disposition home or self-care (01) ==
LOC: ER 13:41
DX: R10.11 Right upper quadrant pain (principal); R11.0 Nausea; E78.00 Pure hypercholesterolemia, unspecified; I10 Essential (primary) hypertension; Z88.6 Allergy status to analgesic agent; Z88.2 Allergy status to sulfonamides; Z87.442 Personal history of urinary calculi
CPT/HCPCS: 96376; 99284; 96361; 96374; 96375; 36415; 83690; 84703; 85025; 80053; 81001; 76705; 74177; J2270; J1170; J2405; J7030

== ENCOUNTER → 2019-05-10 | Outpatient (CLI) | payer BC ==
--- NOTE | 2019-05-10 11:03 | RADIOLOGY REPORT (SQ) ---
EXAM DESCRIPTION: NM HIDA SCAN WITH CCK COMPLETED DATE/TIME: 05/10/2019 10:51 am REASON FOR STUDY: ABD PAIN (R10.9) R10.9 UNSPECIFIED ABDOMINAL PAIN COMPARISON: None. RADIONUCLIDE AND DOSE: DOSAGE RADIONUCLIDE: 5.36 millicuries Tc99m Mebrofenin. DOSAGE CCK: 1.8 micrograms. DOSAGE MORPHINE: Not required. The route of agent administration: Intravenous TECHNIQUE: Serial imaging right upper quadrant up to 60 minutes following injection of radionuclide. CCK injected after gallbladder visualized. LIMITATIONS: None. FINDINGS: LIVER: Normal visualization without areas of photopenia. INTRAHEPATIC BILE DUCTS: Normal size and no delay in visualization. COMMON BILE DUCT: Normal without dilatation. GALLBLADDER: Normal visualization. Calculated ejection fraction of 78%. Normal range is greater th an 35%. PHYSICAL RESPONSE: Patients presenting complaint were reproduced. OTHER: No other significant finding. IMPRESSION: 1. NORMAL STUDY WITHOUT CYSTIC OR COMMON DUCT OBSTRUCTION. NORMAL GALLBLADDER EJECTION FRACTION. NO EVIDENCE FOR BILIARY DYSKINESIS. 2. The patient's symptoms were reproduced following CCK administration. TECHNICAL DOCUMENTATION: JOB ID: [id number]- All Rights Reserved Reading location - IP/workstation name: [email or web address]
== END ==
LOC: RAD 08:17
PROVIDERS: ATTEND Nurse Practitioner Primary Care
DX: R10.9 Unspecified abdominal pain (principal)
CPT/HCPCS: 78227; J2805; A9537; Q9969

== ENCOUNTER 2019-06-13 11:51 | Day surgery (SDC) | payer BC ==
[2019-06-13 12:26] LABS: HEMATOCRIT 39.7 % (36.0-47.0); HEMOGLOBIN 13.7 g/dL (12.0-15.5); MEAN CORPUSCULAR HGB CONC 34.4 g/dL (32.0-36.0); MEAN CORPUSCULAR VOLUME 87 fl (80-97); PLATELET COUNT 322 10^3/uL (150-450); RED BLOOD COUNT 4.55 10^6/uL (3.72-5.28); RED CELL DISTRIBUTION WIDTH 15.1 % (11.5-14.0)
[2019-06-13] MEDS ORDERED: PROPOFOL INJ 200 MG/20 ML VIAL IV ONE (12:30)
[2019-06-13] MEDS ORDERED: LIDOCAINE 2% INJ (20 MG/ML) 20 ML MDV ONE (12:31)
[2019-06-13] MEDS ORDERED: ONDANSETRON HCL INJ/PF 4 MG/2 ML SDV IV PRN (13:21)
--- NOTE | 2019-06-13 14:53 | Discharge Summary ---
Discharge Summary (SDC) - Discharge Final Diagnosis: Abdominal pain Date of Surgery: 06/13/19 Discharge Date: 06/13/19 Condition: Good Treatment or Instructions: [facility] [place] [id number] POST ENDOSCOPY DISCHARGE INSTRUCTIONS 1. Diet: Start clear liquids that a regular diet as tolerated. 2. Resume all preoperative medications. All oral anticoagulants and aspirins can be resumed 24 hours after procedure. 3. If a polypectomy was performed some bleeding per rectum may occur. This should stop within 3 days. If not, please contact the office. 4. If you had a colonoscopy you may experience some bloating and delayed return of normal bowel function for several days, your regular bowel movement pattern should resume within a week. 5. Please contact [facility] at to make an appointment with Dr. Stanton for 1 to 3 weeks following procedure. 6. If you have any questions or concerns regarding your care,treatment plan or follow up, please contact our office. Referrals: YARIEL FRANK, [employer] COORDINATOR-C [Primary Care Provider] - TIARRA STANTON MD [ACTIVE STAFF] - 06/26/19 10:30 am Discharge Diet: As Tolerated Discharge Activity: Activity As Tolerated Home Care Assistance: None Needed Report the Following to Your Physician Immediately: Shortness of Breath, Increase in Pain, Fever over 101 Degrees
--- NOTE | 2019-06-13 14:59 | Operative Report ---
Operative Report DATE OF SURGERY: 06/13/19 PREOPERATIVE DIAGNOSIS: Abdominal pain POSTOPERATIVE DIAGNOSIS: 1. Distal esophagitis. 2. Hiatal hernia. 3. Gastritis. 4. Proximal duodenitis OPERATION: 1. Esophagogastroduodenoscopy. 2. Forceps biopsy x3 of the distal esophagus, gastric antrum, and first portion of the duodenum SURGEON: TIARRA BLANCHARD ANESTHESIA: LMAC TISSUE REMOVED OR ALTERED: biopsies COMPLICATIONS: None ESTIMATED BLOOD LOSS: None INTRAOPERATIVE FINDINGS: See below PROCEDURE: The patient was taken to the preop holding of the main operating where LMAC anesthesia was induced. She was placed in left lateral cubitus position. Monitoring devices attached. Appropriate level of LMAC anesthesia was induced. Surgical plan and surgical timeout were conducted. The flexible adult esophagoscope was advanced through the patient's oropharynx, down the hypopharynx, past the upper esophageal sphincter, through the esophagus, stomach and into the first and second portions of the duodenum. This was reasonably well-tolerated by the patient. She had a significant amount of coughing and oral secretions. The duodenum was significant for irregular mucosa in a cobblestone configuration involving the first portion the duodenum. Photos were taken but unfortunately there was broken. Two cold forceps biopsies were obtained and sent for histologic analysis. Bleeding was minimal. The scope was brought through the pylorus which was otherwise normal. The stomach was now visualized after sufficient lesion. There was mild streaking consistent with gastritis. A random biopsy of the gastric antrum was performed. Bleeding was minimal. There was no evidence of tumor stricture polyp or clot. SubOptimal views of the GE junction were obtained with scope retroflexion because the patient was bucking. It was straightened out and a good look at the GE junction was obtained. There was a small hiatal hernia. I was at approximately 38 cm from the incisor, and was irregular. A cold forceps biopsy was obtained with minimal bleeding and sent to pathology as distal esophagus. The scope was brought back to the patient's oropharynx. She tolerated procedure well. There are no complications. She was taken to recovery in stable condition.
[2019-06-13 16:47] VITALS: BP 110/76
== END 2019-06-13 16:00 | disposition home or self-care (01) ==
LOC: OROUT 11:51
PROVIDERS: ATTEND Surgery
DX: K44.9 Diaphragmatic hernia without obstruction or gangrene (principal); K29.80 Duodenitis without bleeding; K20.9 Esophagitis, unspecified; K29.50 Unspecified chronic gastritis without bleeding; I10 Essential (primary) hypertension; F17.210 Nicotine dependence, cigarettes, uncomplicated; Z88.5 Allergy status to narcotic agent; Z88.2 Allergy status to sulfonamides; Z79.899 Other long term (current) drug therapy
CPT/HCPCS: 43239; 36415; 85027; 81025; 88342 ×2; 88305 ×2; 00731; J3490; J2704; 731